=== PATIENT | female | born 1950 | race Caucasian/White ===

== ENCOUNTER 2018-02-11 15:13 | Emergency (ER) | payer MEDICARE, SELFPAY ==
[2018-02-11] VITALS (9 sets, daily range): BP systolic 113–170; BP diastolic 60–86; PULSE 75–98; RESP 10–21; TEMP 36.7; O2SAT 95–100; BMI 27.3
--- NOTE | 2018-02-11 15:26 | DI.RAD.S_ITS ---
PROCEDURE: XR CHEST 1V INDICATIONS: chest pain TECHNIQUE: One view of the chest was acquired. COMPARISON: None. FINDINGS: Surgical changes and devices: None. Lungs and pleura: No pleural effusions or pneumothorax. Lungs are clear. Mediastinum: Mediastinal contours appear normal. Heart size is normal. Bones and chest wall: No suspicious bony lesions. Overlying soft tissues appear unremarkable. IMPRESSION: No radiographic evidence of acute cardiopulmonary pathology. Dictated by: Edwin Leija M.D. on 02/11/2018 at 15:49 Approved by: Edwin Leija M.D. on 02/11/2018 at 15:50
[2018-02-11 15:55] LABS: Add Manual Diff / Slide Review NO; Basophils Percent Auto 0.7 % (0-2); Hematocrit 40.3 % (36-46); Hemoglobin 13.7 g/dL (12.0-16.0); Lymphocytes Percent Auto 17.2 % (25-40); Mean Corpuscular Hemoglobin 29.6 PG (26-34); Mean Corpuscular Volume 87.1 fL (80-100); Monocytes Percent Auto 8.2 % (3-14); Neutrophils Absolute Auto 6800 /uL (3000-5900); Neutrophils Percent Auto 71.9 % (50-75); Platelet Count 294 X10^3/uL (150-400); Red Blood Cell Count 4.62 X10^6/uL (4.0-5.2); Red Cell Distribution Width 13.5 % (11.6-14.8); White Blood Cell Count 9.5 X10^3/uL (4.5-11.0)
[2018-02-11 16:10] LABS: Alanine Aminotransferase 42 IU/L (9-52); Albumin 4.7 g/dL (3.5-5.0); Albumin Globulin Ratio 1.4 (1.0-2.8); Alkaline Phosphatase 88 U/L (38-126); Aspartate Aminotransferase 31 IU/L (14-36); Bilirubin Total 0.6 mg/dL (0.2-1.3); Calcium 9.5 mg/dL (8.4-10.2); Creatine Kinase 39 U/L (30-135); Estimated Glomerular Filt Rate > 60.0 mL/min (>60); Globulin 3.3 g/dL (1.7-4.1); Glucose 78 mg/dL (80-110); HEMOLYSIS 17 (0-50); Lipase 57 U/L (23-300); Potassium 3.9 mmol/L (3.4-5.1); Sodium 144 mmol/L (137-145)
[2018-02-11 16:22] LABS: Troponin I < 0.012 ng/mL (0.01-0.034)
[2018-02-11] MEDS: SODIUM CHLORIDE 0.9% 1,000 ML 150 ML IV (17:11)
[2018-02-11] MEDS: NITROGLYCERIN 0.4 MG SL TAB SL (17:11)
--- NOTE | 2018-02-11 17:39 | PC.NURSE ---
No change in pain after nitro administration. MD Ortiz aware. Vital Signs stable.
[2018-02-11 18:24] LABS: Troponin I < 0.012 ng/mL (0.01-0.034)
--- NOTE | 2018-02-11 18:39 | ED.CHESTPAIN ---
HPI - Chest Pain General Chief Complaint: Chest Pain Stated Complaint: Chest pain,jaw pain Time Seen by Provider: 02/11/18 15:52 History of Present Illness HPI narrative: Related Data Home Medications Medication Instructions Recorded Confirmed Fish Oil 1 cap PO QDAY 02/11/18 02/11/18 Vitamin D3 1 tab PO QDAY 02/11/18 02/11/18 dimethyl fumarate [Tecfidera] 240 mg PO BID 02/11/18 02/11/18 multivitamin 1 tab PO DAILY 02/11/18 02/11/18 venlafaxine 150 mg PO QDAY 02/11/18 02/11/18 Allergies Allergy/AdvReac Type Severity Reaction Status Date / Time codeine [CODEINE] AdvReac Mild ITCHING Verified 02/11/18 17:46 PFSH Surgical History History of carpal tunnel repair (02/07/09) Family History Father Heart disease Grandfather Alcoholism Grandmother Diabetes mellitus High cholesterol Social History Smoking Status: Never smoker MDM - Chest Pain Lab Data Result diagrams: 02/11/18 15:35 02/11/18 15:35 Lab Results 02/11/18 02/11/18 02/11/18 Range/Units 15:35 15:35 17:50 WBC 9.5 (4.5-11.0) X10^3/uL RBC 4.62 (4.0-5.2) X10^6/uL Hgb 13.7 (12.0-16.0) g/dL Hct 40.3 (36-46) % MCV 87.1 (80-100) fL MCH 29.6 (26-34) PG MCHC 34.0 (30-36) % RDW 13.5 (11.6-14.8) % Plt Count 294 (150-400) X10^3/uL Neut % (Auto) 71.9 (50-75) % Lymph % (Auto) 17.2 L (25-40) % Slope % (Auto) 8.2 (3-14) % Eos % (Auto) 2.0 (2-4) % Baso % (Auto) 0.7 (0-2) % Neut # (Auto) 6800 H (5256-6590) /uL Sodium 144 (137-145) mmol/L Potassium 3.9 (3.4-5.1) mmol/L Chloride 102.0 (98-107) mmol/L Carbon Dioxide 31.0 (22-32) mmol/L BUN 14.0 (7-17) mg/dL Creatinine 0.70 (0.52-1.04) mg/dL Estimated GFR > 60.0 (>60) mL/min BUN/Creatinine Ratio 20.0 (6-22) Glucose 78 L (80-110) mg/dL Calcium 9.5 (8.4-10.2) mg/dL Total Bilirubin 0.6 (0.2-1.3) mg/dL AST 31 (14-36) IU/L ALT 42 (9-52) IU/L Alkaline Phosphatase 88 (38-126) U/L Total Creatine Kinase 39 (30-135) U/L Troponin I < 0.012 < 0.012 (0.01-0.034) ng/mL Total Protein 8.0 (6.3-8.2) g/dL Albumin 4.7 (3.5-5.0) g/dL Globulin 3.3 (1.7-4.1) g/dL Albumin/Globulin Ratio 1.4 (1.0-2.8) Lipase 57 (23-300) U/L Discharge Plan Departure Prescriptions: No Action multivitamin Tablet 1 tab PO DAILY RF: 0 venlafaxine 150 mg capsule,extended release 24hr 150 mg PO QDAY RF: 0 dimethyl fumarate [Tecfidera] 240 mg Capsule,Delayed Release(Dr/Ec) 240 mg PO BID RF: 0 Fish Oil 1 cap PO QDAY RF: 0 Vitamin D3 1 tab PO QDAY RF: 0
[2018-02-11 20:47] LABS: Culture Indicated Urine Cult Not Indicated; Urine Comments Microscopic Normal
== END 2018-02-11 20:36 | disposition left against medical advice (07) ==
PROVIDERS: Emergency Provider Emergency Medicine; Family Provider Family Medicine; PCP Family Medicine
DX: R07.9 Chest pain, unspecified (principal)
CPT/HCPCS: 36415; 36591; 71045; 80053; 81003; 81015; 82550; 82553; 83690; 84484; 85025; 93005; 99283; 99285

== ENCOUNTER 2019-02-19 22:11 | Emergency (ER) | payer MEDICARE, SELFPAY ==
[2019-02-19 22:19] VITALS: BP 178/82; PULSE 84; RESP 15; TEMP 37.1; O2SAT 98; BMI 25.6
--- NOTE | 2019-02-19 22:58 | DI.RAD.S_ITS ---
PROCEDURE: XR SOFT TISSUE NECK INDICATIONS: sore throat TECHNIQUE: 2 views of the neck were acquired. COMPARISON: None. FINDINGS: Airway: The airway appears patent. Soft tissues: Prevertebral soft tissues are normal in thickness. The epiglottis and aryepiglottic folds appear normal. No soft tissue gas. Subtle calcifications within the soft tissues adjacent to the cervical spine on the frontal view and are felt to represent carotid artery atherosclerotic changes. No radiopaque foreign bodies are evident. Bones: No suspicious bony lesions. Visualized cervical spine is normally aligned. Mild to moderate degenerative changes of the cervical spine are evident. IMPRESSION: 1. The airway is patent. 2. Normal epiglottis. 3. Carotid artery atherosclerosis. 4. Mild to moderate degenerative changes of the cervical spine. Note: The preliminary [facility] report and the final report are concordant. Dictated by: Skyler Harvey M.D. on 02/20/2019 at 6:53 Approved by: Skyler Harvey M.D. on 02/20/2019 at 6:55
--- NOTE | 2019-02-19 22:59 | ED.URI ---
HPI - URI/Sore Throat General Chief Complaint: Upper Respiratory Symptoms Stated Complaint: SORE THROAT Time Seen by Provider: 02/19/19 22:54 Source: patient Mode of arrival: ambulatory Limitations: no limitations History of Present Illness HPI Narrative: Patient is a 69-year-old female here for evaluation of a sore throat. This been going on for the past day or so. She was seen at the clinic over on [facility] where she reported that she had a negative strep test however was given a prescription for penicillin. She was also given a prescription for Magic mouthwash for the sore throat. She came into the emergency department this evening for continued pain. Has had a runny nose recently. Has been coughing. No fevers. She states that she is able to swallow however it is just painful for her to swallow. Related Data Home Medications Medication Instructions Recorded Confirmed Fish Oil 1 cap PO QDAY 02/11/18 02/11/18 Vitamin D3 1 tab PO QDAY 02/11/18 02/11/18 dimethyl fumarate [Tecfidera] 240 mg PO BID 02/11/18 02/11/18 multivitamin 1 tab PO DAILY 02/11/18 02/11/18 venlafaxine 150 mg PO QDAY 02/11/18 02/11/18 Allergies Allergy/AdvReac Type Severity Reaction Status Date / Time codeine [CODEINE] AdvReac Mild ITCHING Verified 02/19/19 22:19 Review of Systems Constitutional Denies fever(s) and Denies headache(s) ENT Ears, Nose, Mouth, and Throat: Denies vertigo, Denies dry mouth, Denies facial pain, Denies headache(s), Reports nasal discharge, Denies neck mass, Reports neck pain, Denies disequilibrium, Reports sore throat, Denies throat swelling and Denies tongue swelling Cardiovascular Denies chest pain and Denies dyspnea Respiratory Reports cough and Denies dyspnea Musculoskeletal Reports neck pain Integumentary/Breasts Denies rash Neurologic Denies vertigo, Denies headache(s) and Denies disequilibrium Hematologic/Lymphatic Denies easy bleeding and Denies easy bruising Allergic/Immunologic Denies throat swelling and Denies tongue swelling [facility] Medical History Multiple sclerosis (Acute) Surgical History (Updated 02/03/18 @ 06:06 by Conversion Provider) History of carpal tunnel repair (02/07/09) Family History (Updated 05/02/15 @ 00:00 by Conversion Provider) Father Heart disease Grandfather Alcoholism Grandmother Diabetes mellitus High cholesterol Social History Smoking Status: Never smoker Family History (Updated 05/02/15 @ 00:00 by Conversion Provider) Father Heart disease Grandfather Alcoholism Grandmother Diabetes mellitus High cholesterol Social History Smoking Status: Never smoker Exam Initial Vital Signs Initial Vital Signs: Vital Signs Temperature 98.8 F 02/19/19 22:19 Pulse Rate 84 02/19/19 22:19 Respiratory Rate 15 02/19/19 22:19 Blood Pressure 178/82 H 02/19/19 22:19 Pulse Oximetry 98 02/19/19 22:19 Const General: cooperative, comfortable, well developed, well groomed and No acute distress Orientation: alert, awake and oriented x3 HENMT Head: normal to inspection and normocephalic Ears: TM's normal bilaterally Nose: external nose normal Face and sinus: normal facial exam Mouth: oral mucosae normal Teeth and gingiva: dentition normal Throat: posterior oropharynx normal Neck Lymphatic: lymphadenopathy Resp Effort & Inspection: normal respiratory effort Auscultation: clear to auscultation bilaterally Cardio Rate: regular rate Rhythm: regular rhythm Skin Lesions: no lesions Rashes: no rashes Neuro General: alert and awake Speech: abnormal speech (Muffled voice) Extrem General: normal to inspection and capillary refill normal Course Orders Ordered: ED Orders 02/19/19 22:58 XR soft tissue neck Stat Discontinued Medications Dexamethasone (Decadron) 10 mg PO NOW ONE Stop: 02/20/19 00:03 Last Admin: 02/20/19 00:10 Dose: 10 mg Vital Signs - 8 hr 02/19/19 22:19 02/19/19 23:35 02/20/19 00:16 Temperature 98.8 F Pulse Rate 84 79 89 Respiratory Rate 15 16 Blood Pressure 178/82 H 152/91 H Blood Pressure [Left Arm] 149/65 H Pulse Oximetry 98 99 99 MDM - URI/Sore Throat Lab Data Attestation: I reviewed the patient's lab results. Point of Care Testing Rapid Strep A Negative Imaging Data Soft tissue neck x-ray: Radiologist's impression: No significant abnormalities MDM Narrative Medical decision making narrative: Patient is not in any respiratory distress. She is able to swallow it is just it is tender for her to swallow. Low suspicion for obstruction or muscular issues related to her MS. She does have left-sided submandibular lymphadenopathy. She also has another upper respiratory infection like symptoms. She is currently on antibiotics prescribed by another provider from her visit earlier today. We did discuss the use of decongestants. She was given a dose of Decadron here in the ER to try to help with her symptoms. She was given return precautions and follow-up instructions. She expressed understanding and agreement with plan. Discharge Plan Departure Patient Disposition: Home Clinical Impression: Pharyngitis Qualifiers: Pharyngitis/tonsillitis etiology: unspecified etiology Qualified Code(s): J02.9 - Acute pharyngitis, unspecified Discharge Date/Time: 02/20/19 00:16 Interventions: ED Discharge Assessment Last Done: 02/20/19 00:16 Activity Restrictions/Additional Instructions: I recommend that you continue with the antibiotics that were given to you at your prior visit. The liquid medication that you were given you can take as needed. I recommend you start taking a decongestant such as Claritin/loratadine. Return to the emergency department for any new symptoms to include the inability to swallow or problems breathing. Contact your primary doctor for follow-up. Prescriptions: No Action multivitamin Tablet 1 tab PO DAILY RF: 0 venlafaxine 150 mg capsule,extended release 24hr 150 mg PO QDAY RF: 0 dimethyl fumarate [Tecfidera] 240 mg Capsule,Delayed Release(Dr/Ec) 240 mg PO BID RF: 0 Fish Oil 1 cap PO QDAY RF: 0 Vitamin D3 1 tab PO QDAY RF: 0 Referrals: Dari Caldera MD [Primary Care Provider] -
[2019-02-19 23:35] VITALS: BP 149/65; PULSE 79; RESP 16; O2SAT 99
[2019-02-20] MEDS: DEXAMETHASONE 10 MG/ML VIAL PO (00:10)
[2019-02-20 00:16] VITALS: BP 152/91; PULSE 89; O2SAT 99
== END 2019-02-20 00:16 | disposition home or self-care (01) ==
PROVIDERS: Emergency Provider Emergency Medicine; PCP Family Medicine
DX: J02.9 Acute pharyngitis, unspecified (principal)
CPT/HCPCS: 70360; 87880; 99282; 99283; J1100

== ENCOUNTER 2020-11-24 17:32 | Observation (INO) | payer MEDICARE, SELFPAY ==
[2020-11-24 17:43] VITALS: BP 227/135; PULSE 73; RESP 14; TEMP 37; O2SAT 99; BMI 29.2
--- NOTE | 2020-11-24 17:50 | DI.CT.S_ITS ---
PROCEDURE: CT STROKE INDICATIONS: slurred speech,last known normal 0000 TECHNIQUE: Noncontrast 4.5 mm thick angled axial sections acquired from the foramen magnum to the vertex, with coronal reformats. For radiation dose reduction, the following was used: automated exposure control, adjustment of mA and/or kV according to patient size. COMPARISON: None. FINDINGS: Image quality: Excellent. CSF spaces: Basal cisterns are patent. No extra-axial fluid collections. The ventricles are symmetric in size and shape. Brain: No intracranial bleeds or masses. There is cerebral volume loss for age, with resultant ventricular and sulcal prominence. There are periventricular and deep white matter chronic small vessel ischemic changes. There is intracranial internal carotid artery atherosclerosis. Skull and face: Calvarium and visualized facial bones appear intact, without suspicious lesions. Sinuses: Visualized sinuses and mastoids are clear. IMPRESSION: No acute intracranial disease process. Findings telephoned to Dr. Restrepo on November 24, 2020 at 6:01 p.m.. This study fulfills neurological imaging criteria for inclusion or exclusion of acute stroke therapies based on available published neurological guidelines. Dictated by: Carisa Jj MD, PhD on 11/24/2020 at 18:10 Approved by: Carisa Jj MD, PhD on 11/24/2020 at 18:12
[2020-11-24 18:23] LABS: Add Manual Diff / Slide Review NO; Basophils Absolute Auto 100 /uL (0-100); Basophils Percent Auto 0.9 % (0-2); Eosinophils Absolute Auto 200 /uL (0-450); Eosinophils Percent Auto 2.8 % (2-4); Hematocrit 41.2 % (36-46); Hemoglobin 13.7 g/dL (12.0-16.0); Lymphocytes Absolute Auto 1800 /uL (1100-4500); Lymphocytes Percent Auto 22.7 % (25-40); Mean Corpuscular HGB Conc 33.3 % (30-36); Mean Corpuscular Hemoglobin 29.2 PG (26-34); Mean Corpuscular Volume 87.6 fL (80-100); Monocytes Absolute Auto 800 /uL (0-900); Monocytes Percent Auto 9.7 % (3-14); Neutrophils Absolute Auto 5200 /uL (1500-7000); Neutrophils Percent Auto 63.9 % (50-75); Platelet Count 298 X10^3/uL (150-400); Red Cell Distribution Width 13.1 % (11.6-14.8); White Blood Cell Count 8.1 X10^3/uL (4.5-11.0)
[2020-11-24 18:29] LABS: Prothrombin Time 11.9 SECONDS (10.1-12.7)
[2020-11-24 18:31] LABS: PTT Partial Thromboplastin Tim 31 SECONDS (26.4-36.2)
[2020-11-24 18:34] LABS: Alanine Aminotransferase 26 IU/L (<35); Albumin 4.3 g/dL (3.5-5.0); Albumin Globulin Ratio 1.4 (1.0-2.8); Alkaline Phosphatase 114 U/L (38-126); Aspartate Aminotransferase 28 IU/L (14-36); BUN Creatinine Ratio 15.2 (6-22); Bilirubin Total 0.1 mg/dL (0.2-1.3); Blood Urea Nitrogen 12 mg/dL (7-17); Calcium 9.8 mg/dL (8.4-10.2); Carbon Dioxide 32 mmol/L (22-32); Chloride 101 mmol/L (98-107); Estimated Glomerular Filt Rate > 60.0 mL/min (>60); Globulin 3.1 g/dL (1.7-4.1); Glucose 97 mg/dL (80-110); HEMOLYSIS < 15 (0-50); Potassium 3.9 mmol/L (3.4-5.1); Sodium 139 mmol/L (137-145); Total Protein 7.4 g/dL (6.3-8.2)
[2020-11-24 18:39] VITALS: PULSE 82; RESP 20
[2020-11-24 18:40] VITALS: BP 160/85; PULSE 80; RESP 19; O2SAT 98
--- NOTE | 2020-11-24 19:09 | ED.NEUROSD ---
HPI - Neuro Symptoms/Deficit General Chief Complaint: Neuro Symptoms/Deficit Stated Complaint: Slurred speech, thinks TIA Time Seen by Provider: 11/24/20 18:47 Source: patient Mode of arrival: Ambulatory Limitations: no limitations History of Present Illness HPI Narrative: Patient is a 70-year-old female. Relatively healthy except for prior diagnosis of multiple sclerosis. She has seen a neurologist in the past and had been on medication in the past but nothing in the past year to include neither neurology visits nor medications. She states that yesterday she generally did not feel very well although there was no specific symptoms. She states she woke up this morning feeling okay and around 1000 hours this morning she noticed that she was slurring her words she was trying to talk to someone on the phone. She states she had woken up several hours before that but since her was at work she did not have any reason to talk with anyone so she did not notice the symptoms until 10. Since that time she thought that the symptoms have continued although potentially improved somewhat. She denies any other associated symptoms. Has never had anything like this in the past. She states that in the past her MS flares have presented with visual complaints. On Anticoagulants: No Related Data Home Medications Medication Instructions Recorded Confirmed Fish Oil 1 cap PO QDAY 02/11/18 11/24/20 Vitamin D3 1 tab PO QDAY 02/11/18 11/24/20 multivitamin 1 tab PO DAILY 02/11/18 11/24/20 venlafaxine 225 mg PO QDAY 02/11/18 11/24/20 Allergies Allergy/AdvReac Type Severity Reaction Status Date / Time codeine [CODEINE] AdvReac Mild ITCHING Verified 11/24/20 17:43 Review of Systems Constitutional Constitutional: Denies chills, Reports fatigue, Denies fever(s), Denies headache(s) and Reports malaise Eyes Eyes: Denies change in vision ENT Ears, Nose, Mouth, and Throat: Denies headache(s) and Denies sore throat Cardiovascular Cardiovascular: Denies chest pain, Denies syncope, Denies rapid heart rate, Denies irregular heart rhythm and Denies dyspnea Respiratory Respiratory: Denies dyspnea Gastrointestinal Gastrointestinal: Denies abdominal pain, Denies nausea and Denies vomiting Genitourinary Genitourinary: Denies dysuria Genitourinary: Denies dysuria Musculoskeletal Musculoskeletal: Denies arthralgias and Denies myalgias Integumentary/Breasts Skin/Breast: Denies lesions and Denies rash Neurologic Neurologic: Denies behavioral changes, Denies syncope and Denies headache(s) Psychiatric Psychiatric: Denies anxiety and Denies behavioral changes Endocrine Endocrine: Reports fatigue Hematologic/Lymphatic On Anticoagulants: No Allergic/Immunologic Allergic/Immunologic: Denies urticaria Patient History Medical History Multiple sclerosis Surgical History History of carpal tunnel repair (02/07/09) Hx of cholecystectomy Family History Father Heart disease CVA (cerebral vascular accident) Grandfather Alcoholism Grandmother Diabetes mellitus High cholesterol Mother Uterine cancer Social History household members: spouse Smoking Status: Never smoker alcohol intake: never Smoking Status: Never smoker alcohol intake frequency: other Substance Use Type: does not use Exam Initial Vital Signs Initial Vital Signs: Vital Signs Temperature 98.6 F 11/24/20 17:43 Pulse Rate 73 11/24/20 17:43 Respiratory Rate 14 11/24/20 17:43 Blood Pressure 227/135 H 11/24/20 17:43 Pulse Oximetry 99 11/24/20 17:43 Const General: cooperative, healthy appearing, comfortable and well developed Limitations: mental status not altered HENMT Head: normal to inspection and normocephalic Nose: external nose normal Face and sinus: normal facial exam Eyes Pupils: PERRL EOM: EOM intact bilaterally Resp Effort & Inspection: normal respiratory effort Auscultation: clear to auscultation bilaterally Cardio Rate: regular rate Rhythm: regular rhythm GI Inspection: non-distended Palpation: soft Skin Lesions: no lesions Rashes: no rashes Neuro General: patient alert, patient awake and patient oriented x3 Cognition: normal cognition Gait: normal gait Motor: muscle tone normal throughout Sensory Exam: no sensory deficits noted Coordination: [id number] test normal Extrem General: normal to inspection and capillary refill normal Psych Appearance: grossly normal and well kempt Scores ABCD2 Age >= 60 years: yes Initial BP. Either SBP >= 140 or DBP >= 90.: yes Clinical features of the TIA: speech disturbance without weakness Duration of symptoms: >= 60 minutes History of diabetes: no ABCD2 Score: 5 GCS [place] coma scale eye opening: Spontaneous [place] coma scale verbal response: Orientated [place] coma scale motor response: Obey commands [place] coma scale total score: 15 NIH Stroke Scale Level of Conciousness: Alert, keenly responsive Ask month/age: Answers both questions correctly. Open/close eyes, close hand: Performs both tasks correctly Best gaze horizontal: Normal Visual jones: No visual loss Facial palsy: Normal symetrical movement Left arm drift: No drift for full 10 sec Right arm drift: No drift for full 10 sec Left leg drift: No drift for full 5 sec Right leg drift: No drift for full 5 sec Limb ataxia: Absent Sensory on face/arms/legs: Normal, no sensory loss Best language: Mild to moderate, slurs some words Dysarthria: Mild to mod,some slurring Extinction or inattention: No abnormality Total NIH Stroke scale score: 2 Course Orders Ordered: ED Orders 11/24/20 18:15 Complete Blood Count AUTO DIFF Stat Comprehensive Metabolic Panel Stat Partial Thromboplastin Time Stat Prothrombin Time INR Stat 11/24/20 19:24 COVID19 Stat Aspirin (Aspirin Ec 81 Mg Tablet) 81 mg PO DAILY [facility] Atorvastatin Calcium (Atorvastatin 20 Mg Tablet) 80 mg PO BEDTIME [facility] Last Admin: 11/24/20 22:15 Dose: 80 mg Documented by: LAURA Clopidogrel Bisulfate (Clopidogrel 75 Mg Tablet) 75 mg PO DAILY [facility] Enoxaparin Sodium (Enoxaparin 40 Mg/0.4 Ml Syringe) 40 mg SUBCUT DAILY [facility] Influenza Virus Vaccine (Influenza Hd Vaccine 0.7 Ml Syringe) 0.7 ml IM .ONCE ONE Stop: 11/25/20 09:01 Naloxone HCl (Naloxone 0.4 Mg/Ml Vial) 0.2 mg IV Q2MIN PRN PRN Reason: Opiate Reversal Ondansetron HCl (Ondansetron 4 Mg/2 Ml Inj) 4 mg IV Q8HR PRN PRN Reason: Nausea And Vomiting Sodium Chloride (Sodium Chloride 0.9% Flush) 10 ml IV PRN PRN PRN Reason: Flush Sodium Chloride (Sodium Chloride 0.9% Flush) 10 ml IV BID [facility] Venlafaxine HCl (Venlafaxine Er 75 Mg Cap) 150 mg PO DAILY [facility] Venlafaxine HCl (Venlafaxine Er 75 Mg Cap) 75 mg PO DAILY [facility] Discontinued Medications Aspirin (Aspirin 81 Mg Chew Tab) 324 mg PO NOW ONE Stop: 11/24/20 19:11 Last Admin: 11/24/20 19:25 Dose: 324 mg Documented by: PHAN Influenza Virus Vaccine (Influenza Hd Vaccine 0.7 Ml Syringe) 0.7 ml IM .ONCE ONE Stop: 11/24/20 22:37 Last Admin: 11/25/20 01:14 Dose: Not Given Documented by: MARY Vital Signs Vital signs: Vital Signs - 8 hr 11/24/20 17:43 Temperature 98.6 F Pulse Rate 73 Respiratory Rate 14 Blood Pressure 227/135 H Pulse Oximetry 99 MDM - Neuro Symptoms/Deficit Medical Records Attestation: I reviewed the patient's medical records. Lab Data Attestation: I reviewed the patient's lab results. Result diagrams: 11/24/20 18:15 11/24/20 18:15 Labs: Lab Results 11/24/20 11/24/20 11/24/20 Range/Units 18:15 18:15 18:15 WBC 8.1 (4.5-11.0) X10^3/uL RBC 4.70 (4.0-5.2) X10^6/uL Hgb 13.7 (12.0-16.0) g/dL Hct 41.2 (36-46) % MCV 87.6 (80-100) fL MCH 29.2 (26-34) PG MCHC 33.3 (30-36) % RDW 13.1 (11.6-14.8) % Plt Count 298 (150-400) X10^3/uL Neut % (Auto) 63.9 (50-75) % Lymph % (Auto) 22.7 L (25-40) % Delta % (Auto) 9.7 (3-14) % Eos % (Auto) 2.8 (2-4) % Baso % (Auto) 0.9 (0-2) % Neut # (Auto) 5200 (6908-0096) /uL Lymph # (Auto) 1800 (9902-0718) /uL Delta # (Auto) 800 (0-900) /uL Eos # (Auto) 200 (0-450) /uL Baso # (Auto) 100 (0-100) /uL PT 11.9 (10.1-12.7) SECONDS INR 1.0 (0.9-1.3) APTT 31 (26.4-36.2) SECONDS Sodium 139 (137-145) mmol/L Potassium 3.9 (3.4-5.1) mmol/L Chloride 101 (98-107) mmol/L Carbon Dioxide 32 (22-32) mmol/L BUN 12 (7-17) mg/dL Creatinine 0.79 (0.52-1.04) mg/dL Estimated GFR > 60.0 (>60) mL/min BUN/Creatinine Ratio 15.2 (6-22) Glucose 97 (80-110) mg/dL Hemoglobin A1c (4.0-6.0) % Calcium 9.8 (8.4-10.2) mg/dL Total Bilirubin 0.1 L (0.2-1.3) mg/dL AST 28 (14-36) IU/L ALT 26 (<35) IU/L Alkaline Phosphatase 114 (38-126) U/L Total Protein 7.4 (6.3-8.2) g/dL Albumin 4.3 (3.5-5.0) g/dL Globulin 3.1 (1.7-4.1) g/dL Albumin/Globulin Ratio 1.4 (1.0-2.8) SARS-CoV-2 (PCR) (Negative) 11/24/20 11/24/20 Range/Units 18:15 19:24 WBC (4.5-11.0) X10^3/uL RBC (4.0-5.2) X10^6/uL Hgb (12.0-16.0) g/dL Hct (36-46) % MCV (80-100) fL MCH (26-34) PG MCHC (30-36) % RDW (11.6-14.8) % Plt Count (150-400) X10^3/uL Neut % (Auto) (50-75) % Lymph % (Auto) (25-40) % Delta % (Auto) (3-14) % Eos % (Auto) (2-4) % Baso % (Auto) (0-2) % Neut # (Auto) (0409-5580) /uL Lymph # (Auto) (7257-4531) /uL Delta # (Auto) (0-900) /uL Eos # (Auto) (0-450) /uL Baso # (Auto) (0-100) /uL PT (10.1-12.7) SECONDS INR (0.9-1.3) APTT (26.4-36.2) SECONDS Sodium (137-145) mmol/L Potassium (3.4-5.1) mmol/L Chloride (98-107) mmol/L Carbon Dioxide (22-32) mmol/L BUN (7-17) mg/dL Creatinine (0.52-1.04) mg/dL Estimated GFR (>60) mL/min BUN/Creatinine Ratio (6-22) Glucose (80-110) mg/dL Hemoglobin A1c 5.6 (4.0-6.0) % Calcium (8.4-10.2) mg/dL Total Bilirubin (0.2-1.3) mg/dL AST (14-36) IU/L ALT (<35) IU/L Alkaline Phosphatase (38-126) U/L Total Protein (6.3-8.2) g/dL Albumin (3.5-5.0) g/dL Globulin (1.7-4.1) g/dL Albumin/Globulin Ratio (1.0-2.8) SARS-CoV-2 (PCR) Negative (Negative) Urine Dip Bedside Urine Glucose Negative Bedside Urine Bilirubin - Negative Bedside Urine Ketone - Negative Urine Specific [place] 1.015 Bedside Urine Occult Blood - Negative Bedside Urine pH 7.5 Bedside Urine Protein - Negative Bedside Urine Urobilinogen - Negative Bedside Urine Nitrite - Negative Bedside Urine Leukocytes - Negative Esterase Imaging Data CT scan - head: Radiologist's Impression: [address] [id number] Scan ReportSigned Patient: Kelly Kam IMR#: [id number]: 8Acct:[id number]/Sex: 70 / FDate of Service: 11/24/20Loc: EDAccession Number: [id number] Procedure: CT Stroke Ordering Provider: Nanette Restrepo D.O. PROCEDURE: CT STROKE INDICATIONS: slurred speech,last known normal 0000 TECHNIQUE: Noncontrast 4.5 mm thick angled axial sections acquired from the foramen magnum to the vertex, with coronal reformats. For radiation dose reduction, the following was used: automated exposure control, adjustment of mA and/or kV according to patient size. COMPARISON: None. FINDINGS: Image quality: Excellent. CSF spaces: Basal cisterns are patent. No extra-axial fluid collections. The ventricles are symmetric in size and shape. Brain: No intracranial bleeds or masses. There is cerebral volume loss for age, with resultant ventricular and sulcal prominence. There are periventricular and deep white matter chronic small vessel ischemic changes. There is intracranial internal carotid artery atherosclerosis. Skull and face: Calvarium and visualized facial bones appear intact, without suspicious lesions. Sinuses: Visualized sinuses and mastoids are clear. IMPRESSION: No acute intracranial disease process. Findings telephoned to Dr. Restrepo on November 24, 2020 at 6:01 p.m.. This study fulfills neurological imaging criteria for inclusion or exclusion of acute stroke therapies based on available published neurological guidelines. Dictated by: Carisa Jj MD, PhD on 11/24/2020 at 18:10 Approved by: Carisa Jj MD, PhD on 11/24/2020 at 18:12 ECG Data Attestation: I personally reviewed and interpreted this ECG as follows: Prior ECG tracings: not available for review Interpretation: Sinus rhythm Ventricular rate is 76 Normal axis Normal QRS Normal QTC No ST T wave changes MDM Narrative Medical decision making narrative: Her head CT is unremarkable. She is outside the window for tPA given the fact that she presented to the emergency department greater than 4.5 hours after the onset of her symptoms. She reports that she thinks that her symptoms are improving. She did have an NIH of 2 and that was because she did slower some of her words however was able to understand everything that she was saying and if she had not specifically stated that she was having problems lying reports I do not know if I would have even noticed the deficits. She has no other focal neurologic deficits. I have low suspicion for large vessel occlusion given her presentation. She does have a history of MS and we did discuss potentially this being related to that. We also discussed TIAs. She has a ABCD2 score of 5. I do feel that admission to the hospital for further evaluation and MRI is warranted. Discussed the case with NPO along the night Hospital provider who will admit for further evaluation and treatment. I did discuss this with the patient as well. She expressed understanding and agreement. Discharge Plan Departure Patient Disposition: Admitted as Observation Clinical Impression: Transient cerebral ischemia, Multiple sclerosis Admit Date/Time: 11/24/20 20:12 Admit Provider: Cate Ramirez
[2020-11-24] MEDS: ASPIRIN 81 MG CHEW TAB 324 MG PO (19:25)
[2020-11-24 19:48] LABS: COVID19 -Nasal RAPID Negative (Negative)
--- NOTE | 2020-11-24 20:21 | DI.ECHO.S_ITS ---
[place] +---------+ [facility] +---------+ : : [address] : : : : [id number] : : : : Phone: [phone]+ Echocardiogram Report + + :Name: BLAINE SAINZ I Study Date: 11/25/2020 Height: 61 in : :[facility] ReadingLocation: Weight: 155 lb : : Gender: Female BSA: 1.7 m2 : :: 1950 Age: 70 yrs BP: 148/82 mmHg: :Reason For Study: SLURRED SPEECH, BUBBLE STUDY : :Ordering Physician: BERNADETTE SANDERS : :[employer] Performed By: Magali Arevalo : :Referring: BERNADETTE SANDERS : + + Interpretation Summary 1) Normal left ventricular thickness, size, and systolic function (EF 60-65%). 2) Normal right ventricular size and function. 3) No significant valvular abnormalities. 4) Injection of contrast documented no interatrial shunt. 5) There is mild luminal irregularity and echogenicity in the abdominal aorta, suggestive of aortic atherosclerotic disease. 6) No prior Echo available for comparison. Procedure: A two-dimensional transthoracic echocardiogram with color flow and Doppler was performed. The study quality was technically adequate. There is no prior echocardiogram noted for this patient. The patient had frequent PVCs during the exam. The patient was in sinus rhythm with heart rates between 72-84 bpm during the exam. Left Ventricle: There is normal left ventricular wall thickness. The left ventricle is normal in size. The ejection fraction is estimated to be 60-65%. Septal motion is consistent with conduction abnormality. There are no focal wall motion abnormalities. Diastolic parameters suggest a relaxation abnormality of the left ventricle, consistent with probable normal filling pressures. Right Ventricle: The right ventricle is normal in size and function. Atria: Both atria are normal in size. Injection of contrast documented no interatrial shunt. Mitral Valve: The mitral valve is normal in structure and function. There is no mitral regurgitation noted. Aortic Valve: The aortic valve is slightly calcified. The aortic valve opens well. There is no aortic valve stenosis. No aortic regurgitation is present. Tricuspid Valve: The tricuspid valve is normal in structure and function. Comparison with the previous study is not possible because this was unable to be assessed on the previous study. There is trace tricuspid regurgitation. Pulmonic Valve: The pulmonic valve leaflets are thin and pliable; valve motion is normal. There is no pulmonic valvular regurgitation. Great Vessels: The aortic root is normal size. The ascending aorta could not be visualized. There is mild luminal irregularity and echogenicity in the abdominal aorta, suggestive of aortic atherosclerotic disease. The IVC is of normal diameter and collapses greater than 50% with a sniff. This suggests a low right atrial pressure of 3 mm Hg. Pericardium/ Pleura There is no pericardial effusion. There is no pleural effusion. MMode/2D Measurements & Calculations LVIDd: 3.5 cm LVOT diam: 2.0 cm LVIDs: 2.2 cm Ao root diam: 3.0 cm FS: 36.8 % Ao Arch Diam (Prox Trans): 2.6 cm EPSS: 0.92 cm IVSd: 1.2 cm LVPWd: 0.91 cm LV boyle. diameter/BSA (cm/m^2): 2.1 LV sys. diameter/BSA (cm/m^2): 1.3 LA A2 area: 14.7 cm2 RA long axis: 3.9 cm LA A4 area: 14.4 cm2 RA area: 11.1 cm2 LA length (vol): 4.6 cm RA vol: 27.0 ml LA vol: 39.5 ml RA : 15.9 ml/m2 LA vol index: 23.3 ml/m2 IVC diam: 0.50 cm RVD1 (basal): 1.4 cm TAPSE: 1.7 cm Doppler Measurements & Calculations Ao V2 max: 114.7 cm/sec LVOT Max Alec: 73.0 cm/sec Ao V2 mean: 82.3 cm/sec LV V1 max P.1 mmHg Ao max P.3 mmHg LV V1 VTI: 14.9 cm Ao mean P.9 mmHg WALT(I,D): 2.1 cm2 Ao V2 VTI: 21.4 cm WALT(V,D): 1.9 cm2 sev ratio: 0.70 WALT indexed to BSA (cm^2/m^2): 1.2 MV E max alec: 74.5 cm/sec PA V2 max: 69.2 cm/sec MV A max alec: 85.9 cm/sec PA V2 mean: 42.1 cm/sec MV E/A: 0.87 PA mean P.85 mmHg Med Peak E' Alec: 7.6 cm/sec PA pr(Accel): 7.1 mmHg E/E' med: 9.9 Lat Peak E' Alec: 4.2 cm/sec E/E' lat: 17.8 E/e' average: 13.8 MV dec time: 0.23 sec SV(OT): 44.8 ml Reading Physician:11:44 AM
[2020-11-24 20:36] LABS: Hemoglobin A1C% w Est Avg Glu 5.6 % (4.0-6.0)
[2020-11-24 21:45] VITALS: BP 130/91; PULSE 78; RESP 17; TEMP 36.6; O2SAT 100
--- NOTE | 2020-11-24 21:59 | PM.HP.1 ---
History of Present Illness History of Present Illness Date Patient Seen: 11/24/20 Time Patient Seen: 21:45 Chief complaint: Slurred speech, thinks TIA Narrative: Kelly Kam is a pleasant 70 y.o. female with multiple sclerosis who presented to the ED due to sudden onset difficulty with her speech. Stated she was on the phone with her friend prior to her returning home for lunch and felt that she was having difficulty speaking and some word finding difficulties. When her came home he observed her slurring. She stated she was having difficulty with pronouncing S and still feel she lisps. She denies visual changes, headache, difficulty swallowing, chest pain or palpitations, dyspnea, nausea or vomiting, dysurea, diarrhea or constipation, or any numbing or tingling. 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 She differentiates what happened today from her usual MS exacerbations which generally present with vision issues where she has double vision of her left eye. She sees a neurologist at [facility], had been taking medications for her MS, but is not currently doing so due to finances. She lives on [facility]. In the ED, her presenting blood pressure was 227/135. She is afebrile, currently her blood pressure is 130/91, heart rate 70, respiratory rate 17, oxygen saturation of 100% on room air she weighs 70.3 kg with a BMI of 29. Her labs essentially were all within normal limits, and she is COVID PCR negative. CT of the brain was negative. She was administered full strength in the ED. Patient History Medical History Multiple sclerosis Surgical History History of carpal tunnel repair (02/07/09) Hx of cholecystectomy Family & Social History Family History Father Heart disease CVA (cerebral vascular accident) Grandfather Alcoholism Grandmother Diabetes mellitus High cholesterol Mother Uterine cancer Safety & Behavioral: Feels Safe in Current Yes Environment Been Physically Hurt or No Threatened By a Person Tobacco & Substance use: Smoking Status Never smoker alcohol intake frequency other Substance Use Type does not use Meds Home Medications and Allergies Home Medications Medication Instructions Recorded Confirmed Type Fish Oil 1 cap PO QDAY 02/11/18 11/24/20 History Vitamin D3 1 tab PO QDAY 02/11/18 11/24/20 History multivitamin 1 tab PO DAILY 02/11/18 11/24/20 History venlafaxine 225 mg PO QDAY 02/11/18 11/24/20 History Allergies Allergy/AdvReac Type Severity Reaction Status Date / Time codeine [CODEINE] AdvReac Mild ITCHING Verified 11/24/20 17:43 Review of Systems Review of Systems ROS: Yes All systems reviewed with the patient and are negative except as otherwise documented Exam Vital Signs (past 8 hours): - 11/24/20 17:43 11/24/20 18:39 11/24/20 18:40 Temperature 98.6 F Pulse Rate 73 82 80 Respiratory Rate 14 20 19 Blood Pressure 227/135 H 160/85 H Pulse Oximetry 99 98 Oxygen Delivery Method Room Air Narrative Exam Narrative: Gen: Alert, oriented, well-developed 70 y.o. female, non-toxic appearing HEENT: normocephalic, atraumatic, conjunctiva clear, sclera non-icteric, oral mucosa pink and moist Neck: supple, full ROM, no JVD, trachea is midline Resp: Lungs CTA, non-labored breathing CV: RRR, no murmur or rubs Abd: soft, non-tender, normoactive BTs Skin: no lesions or rashes, dry and intact Neuro: Mild lisp and subtle right sided asymmetry of the mouth. Alert and oriented X 4 w/no focal deficits. Speech clear and coherent. Extremities: Hebrinon nodes on both hands, moves all 4 extremities, is ambulatory, negative Moody?s sign Psyche: normal mood and affect. Objective Labs Result Diagrams: 11/24/20 18:15 11/24/20 18:15 Labs: Laboratory Results - last 24 hr 11/24/20 11/24/20 11/24/20 18:15 18:15 18:15 WBC 8.1 RBC 4.70 Hgb 13.7 Hct 41.2 MCV 87.6 MCH 29.2 MCHC 33.3 RDW 13.1 Plt Count 298 Neut % (Auto) 63.9 Lymph % (Auto) 22.7 L [place] % (Auto) 9.7 Eos % (Auto) 2.8 Baso % (Auto) 0.9 Neut # (Auto) 5200 Lymph # (Auto) 1800 [place] # (Auto) 800 Eos # (Auto) 200 Baso # (Auto) 100 PT 11.9 INR 1.0 APTT 31 Sodium 139 Potassium 3.9 Chloride 101 Carbon Dioxide 32 BUN 12 Creatinine 0.79 Estimated GFR > 60.0 BUN/Creatinine Ratio 15.2 Glucose 97 Hemoglobin A1c Calcium 9.8 Total Bilirubin 0.1 L AST 28 ALT 26 Alkaline Phosphatase 114 Total Protein 7.4 Albumin 4.3 Globulin 3.1 Albumin/Globulin Ratio 1.4 SARS-CoV-2 (PCR) 11/24/20 11/24/20 18:15 19:24 WBC RBC Hgb Hct MCV MCH MCHC RDW Plt Count Neut % (Auto) Lymph % (Auto) [place] % (Auto) Eos % (Auto) Baso % (Auto) Neut # (Auto) Lymph # (Auto) [place] # (Auto) Eos # (Auto) Baso # (Auto) PT INR APTT Sodium Potassium Chloride Carbon Dioxide BUN Creatinine Estimated GFR BUN/Creatinine Ratio Glucose Hemoglobin A1c 5.6 Calcium Total Bilirubin AST ALT Alkaline Phosphatase Total Protein Albumin Globulin Albumin/Globulin Ratio SARS-CoV-2 (PCR) Negative Assessment & Plan Assessment & Plan narrative: Kelly Kam will be observed overnight and undergo additional testing for a TIA vs CVA on 11/25. Suspected TIA versus stroke, acute, present on admission -Cardiac telemetry -NIH score greater than 5 no -NIH scoring and neuro checks q 4 hours -Dual antiplatelet therapy: Yes initiate clopidogrel 75 mg p.o. daily and aspirin 81 mg p.o. daily -MR stroke scheduled for 11/25 -Complete Echo with bubble study for 11/25 -ST evaluation Hypertension, acute with an admission bp of 227/135, present on admission -Allow for permissive hypertension of 220/110 HR 60 to allow for brain perfusion HLD -Lipid panel, pending -Atorvastatin 80 mg po at bedtime Risk stratification -Fasting lipid panel -A1c 5.6 VTE prophylaxis: Wells risk score: 0 Enoxaparin 40 mg subQ daily Consults: none Patient is observation status as her stay is not likely to exceed 2 midnights. FEN: saline lock, heart healthy diet w/no added salt, BMP and magnesium in the am. Dispo: Probable discharge to home w/followup with her neurologist. Code Status: Full Code per patient. COVID-19 COVID-19 status: Negative Result date/Date tested (Pos, Neg/Pending): 11/24/20 Quality VTE Deep Vein Thrombosis/Pulmonary Embolism Present on Admission: No
[2020-11-24 22:04] VITALS: BMI 29.2
[2020-11-24] MEDS: ATORVASTATIN 20 MG TABLET 80 MG PO (22:15)
--- NOTE | 2020-11-25 | DI.MRI.S_ITS ---
PROCEDURE: MR STROKE Pre- and post-contrast brain MRI, non-contrast brain MR angiogram, pre- and postcontrast neck MR angiogram INDICATIONS: slurred speech concerning for TIA vs CVA TECHNIQUE: Brain: Noncontrast axial T1 spin echo, axial T2 fast spin echo, sagittal and axial FLAIR, coronal T2 fast spin echo, axial gradient echo, axial diffusion and ADC through the brain. After the administration of contrast, axial 3D VIBE of the cranial vasculature and brain. Brain MRA: Non-contrast 3-D time of flight MR angiogram, with multiple onjzksl-obyrcszez-knfhzotjwy (MIP) reformats performed. Neck MRA: Axial and sagittal TruFISP through the neck. Coronal dynamic MR angiogram during administration of contrast in the arterial and venous phases, with 3-dimenstional nbdjcne-rmkpmwxvw-dsavixbash (MIP) reformats constructed from subtraction images. COMPARISON: [facility] , MR, ANGIO HEAD W/O CONTRAST, 01/31/2010, 14:19. [facility] , MR, MS BRAIN W & W/O CONT, 01/31/2010, 14:19. [facility], CT, CT STROKE, 11/24/2020, 17:54. (Additional prior studies are not available for review from the archive at the time of this dictation.) FINDINGS: Image quality: Excellent. BRAIN: CSF spaces: Ventricles are normal in size and shape. Basal cisterns are patent. No extra-axial fluid collections. Brain: Within the deep white matter of the right frontal lobe, there is a diffusion-weighted abnormality seen, as on series 26 images 68 through 70. Associated dark signal can be seen on the ADC maps. Elsewhere within the deep white matter on both sides, there are areas of mildly increased diffusion-weighted signal. However, these correspond to bright areas on the ADC map and are attributed to artifact T2 shine through. Numerous T2 hyperintense white matter lesions are seen, including involving the corpus callosum. A few of the periventricular lesions demonstrate a perpendicular orientation to the lateral ventricles. Several juxtacortical lesions can also be seen. Several of the larger lesions demonstrate low signal on T1 weighted imaging. The burden of white matter lesions has progressed over time. No intracranial bleeds or mass effects. Valencia-white matter interface is normal. Brainstem appears normal. Normal intravascular flow voids are present. No abnormal intracranial enhancement. Skull and face: Calvarial marrow signal is normal. Orbits appear normal. Sinuses: Sinuses and mastoids are clear. Bilateral candis bullosa are incidentally noted. BRAIN MR ANGIOGRAM: Anterior circulation: Intracranial internal carotid arteries are normal in size and enhancement. The flow within the paired anterior cerebral arteries is normal and symmetric. The flow within the middle cerebral arteries is normal and symmetric. The anterior communicating artery is not well seen. No stenoses, occlusions, or aneurysms. Posterior circulation: The visualized portions of the vertebral arteries demonstrate normal caliber, and join to form a normal appearing basilar artery. There is a focal high-grade narrowing of at least 90% within the left P1 segment. The flow within the posterior cerebral arteries is otherwise normal and symmetric. No stenoses, occlusions, or aneurysms. NECK MR ANGIOGRAM: Carotids: Great vessels demonstrate a conventional anatomy as they arise from the aortic arch. The origins of the common carotid arteries appear patent. The calibers and courses of both common carotid arteries are normal. The bifurcation regions demonstrate mild atherosclerotic irregularity. There is approximately 50% stenosis seen involving the right proximal internal carotid artery. No significant stenosis can be seen on the left. The more distal internal carotid arteries demonstrate normal course and caliber. Posterior circulation: The origins of the vertebral arteries appear patent. More superior portions of both vertebral arteries demonstrate normal course and caliber, and join to form a normal appearing basilar artery. Miscellaneous: Subclavian arteries appear patent. Pre-contrast images through the neck show no soft tissue abnormalities. IMPRESSION: BRAIN MRI: Acute infarction seen involving the deep white matter of the right frontal lobe. Numerous white matter lesions are seen, which are characteristic for multiple sclerosis. The burden of the white matter lesions has progressed over time. These lesions do not enhance. No masses or abnormal enhancement can be seen. BRAIN MR ANGIOGRAM: There is a focal high-grade stenosis (at least 90%) within the LEFT P1 segment. This is new compared to 2009. This vascular lesion is not regarded to be the culprit for the patient's RIGHT-sided stroke. NECK MR ANGIOGRAM: Approximately 50% stenosis seen involving the right proximal internal carotid artery. Normal appearing vertebral arteries. Dictated by: Del Lucia M.D. on 11/25/2020 at 9:52 Approved by: Del Lucia M.D. on 11/25/2020 at 10:03
[2020-11-25 00:15] VITALS: BP 148/82; PULSE 67; RESP 18; TEMP 36.8; O2SAT 96
--- NOTE | 2020-11-25 02:27 | PC.NURSE ---
2351: patient is alert and oriented with an NIH of 1 due to occasional slurring of s sounds. States she has blurry vision and diplopia when looking to left as well as problems with depth perception none of which are new. Breath sounds CTA with RA sat of 96%. Placed on telemetry and reading was SR although when listening to heart had an occasional missed/extra beat. BP is elevated at 148/82 which is improved from readings in ER. Denies nausea. BT present and abdomen is soft. Denies dysuria, frequency or urgency with urination. Moves self in bed. States she has been unsteady with walking prior to hospitalization and has fallen in past 3 months so fall risk score is high; bed alarm is activated and patient is being provided SBA when out of bed. Denies pain.
[2020-11-25 06:00] VITALS: BP 142/73; PULSE 69; RESP 16; TEMP 36.4; O2SAT 96
[2020-11-25 06:06] LABS: Add Manual Diff / Slide Review NO; Basophils Absolute Auto 0 /uL (0-100); Basophils Percent Auto 0.3 % (0-2); Eosinophils Absolute Auto 300 /uL (0-450); Eosinophils Percent Auto 4.1 % (2-4); Hematocrit 40.6 % (36-46); Hemoglobin 13.8 g/dL (12.0-16.0); Lymphocytes Absolute Auto 2100 /uL (1100-4500); Lymphocytes Percent Auto 27.6 % (25-40); Mean Corpuscular HGB Conc 33.9 % (30-36); Mean Corpuscular Hemoglobin 29.5 PG (26-34); Monocytes Absolute Auto 800 /uL (0-900); Monocytes Percent Auto 10.4 % (3-14); Neutrophils Absolute Auto 4400 /uL (1500-7000); Neutrophils Percent Auto 57.6 % (50-75); Platelet Count 280 X10^3/uL (150-400); Red Blood Cell Count 4.67 X10^6/uL (4.0-5.2); Red Cell Distribution Width 13.2 % (11.6-14.8); White Blood Cell Count 7.6 X10^3/uL (4.5-11.0)
[2020-11-25 06:21] LABS: BUN Creatinine Ratio 13.6 (6-22); Blood Urea Nitrogen 12 mg/dL (7-17); Calcium 9.6 mg/dL (8.4-10.2); Carbon Dioxide 35 mmol/L (22-32); Chloride 106 mmol/L (98-107); Cholesterol 300 mg/dL (140-199); Estimated Glomerular Filt Rate > 60.0 mL/min (>60); Glucose 98 mg/dL (80-110); HDL Cholesterol 41 mg/dL (40-60); HEMOLYSIS < 15 (0-50); Magnesium 2.1 mg/dL (1.6-2.3); Potassium 4.5 mmol/L (3.4-5.1); Sodium 141 mmol/L (137-145); Triglycerides 402 mg/dL (35-150)
[2020-11-25 06:31] LABS: Troponin I < 0.012 ng/mL (0.01-0.034)
[2020-11-25 07:05] LABS: Thyroid Stimulating Hormone 3.22 uIU/mL (0.47-4.68)
[2020-11-25 07:42] VITALS: BP 163/63; PULSE 77; RESP 18; TEMP 36.2; O2SAT 96
[2020-11-25] MEDS: ASPIRIN EC 81 MG TABLET PO (09:24)
[2020-11-25] MEDS: CLOPIDOGREL 75 MG TABLET PO (09:24)
[2020-11-25] MEDS: ENOXAPARIN 40 MG/0.4 ML SYRINGE SUBCUT (10:24)
[2020-11-25] MEDS: VENLAFAXINE ER 75 MG CAP PO (10:24)
[2020-11-25] MEDS: VENLAFAXINE ER 75 MG CAP 150 MG PO (10:24)
[2020-11-25] MEDS: SODIUM CHLORIDE 0.9% FLUSH 10 ML IV (10:25)
[2020-11-25] MEDS: INFLUENZA HD VACCINE 0.7 ML SYRINGE IM (11:15)
--- NOTE | 2020-11-25 11:52 | PM.DS.1 ---
History of Present Illness History of Present Illness Date Patient Seen: 11/25/20 Time Patient Seen: 11:53 Chief complaint: Slurred speech, thinks TIA Narrative: Per FAITH Yo: Kelly Kam is a pleasant 70 y.o. female with multiple sclerosis who presented to the ED due to sudden onset difficulty with her speech. Stated she was on the phone with her friend prior to her returning home for lunch and felt that she was having difficulty speaking and some word finding difficulties. When her came home he observed her slurring. She stated she was having difficulty with pronouncing S and still feel she lisps. She denies visual changes, headache, difficulty swallowing, chest pain or palpitations, dyspnea, nausea or vomiting, dysurea, diarrhea or constipation, or any numbing or tingling. 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 She differentiates what happened today from her usual MS exacerbations which generally present with vision issues where she has double vision of her left eye. She sees a neurologist at [facility], had been taking medications for her MS, but is not currently doing so due to finances. She lives on [facility]. In the ED, her presenting blood pressure was 227/135. She is afebrile, currently her blood pressure is 130/91, heart rate 70, respiratory rate 17, oxygen saturation of 100% on room air she weighs 70.3 kg with a BMI of 29. Her labs essentially were all within normal limits, and she is COVID PCR negative. CT of the brain was negative. She was administered full strength in the ED. Discharge Providers Provider Date of admission: 11/24/20 20:12 Discharge Date: 11/25/20 Primary care physician: Dari Caldera MD Consults: 11/24/20 20:22 Consult to Speech Therapy Evaluate & Treat Comment: Physician Instructions: Evaluate and treat Discharge provider: Marcelo Barnard DO Summary Hospital Course Discharge Diagnosis: 1. Acute CVA, present on admission, stable 2. Hypertension, acute, improved 3. HLD, present on admission 4. Multiple sclerosis, chronic Hospital Course: Kelly Kam is a 70-year-old female with a past medical history of multiple sclerosis not on medications who presented with a mild speech deficit and facial asymmetry. MRI was performed and did show an acute infarct in her right frontal lobe. She had no progression of symptoms and actually some improvement. She was seen by speech therapy who provided the patient with exercises and stated that the patient was cleared for discharge home. She did not necessitate of physical or occupational therapy evaluation given her presentation. Echocardiogram was performed which was unremarkable and showed no evidence of an embolic mechanism. Her blood pressure in the morning after admission was well controlled, slightly elevated before discharge. I recommend that she follow-up with her primary care provider for further blood pressure management if needed as an outpatient. Patient was started on aspirin, Plavix for at least 30 days given her carotid imaging showed 90% stenosis in her left carotid artery which was not contributory toward her stroke. I recommend that she follow-up with a vascular surgeon for possible interventions given the severity stenosis. Her total cholesterol was also 300, as well as a triglyceride level 402. She was started on statin therapy and this should be repeated although she may need additional medications. Exam Vital Signs (past 8 hours): - 11/25/20 06:00 11/25/20 07:42 Temperature 97.6 F 97.2 F L Pulse Rate 69 77 Respiratory Rate 16 18 Blood Pressure 142/73 H 163/63 H Pulse Oximetry 96 96 Oxygen Delivery Method Room Air Oxygen Flow Rate 0 Narrative Exam Narrative: Gen: Alert, oriented, well-developed 70 y.o. female, non-toxic appearing HEENT: normocephalic, atraumatic, conjunctiva clear, sclera non-icteric, oral mucosa pink and moist Neck: supple, full ROM, no JVD, trachea is midline Resp: Lungs CTA, non-labored breathing CV: RRR, no murmur or rubs Abd: soft, non-tender, normoactive BTs Skin: no lesions or rashes, dry and intact Neuro: Mild lisp and subtle right sided asymmetry of the mouth. Alert and oriented X 4 w/no focal deficits. Speech clear and coherent. Extremities: Hebrinon nodes on both hands, moves all 4 extremities, is ambulatory, negative Moody?s sign Psyche: normal mood and affect. Objective Imaging MRI - head: Radiologist's impression: IMPRESSION: BRAIN MRI: Acute infarction seen involving the deep white matter of the right frontal lobe. Numerous white matter lesions are seen, which are characteristic for multiple sclerosis. The burden of the white matter lesions has progressed over time. These lesions do not enhance. No masses or abnormal enhancement can be seen. BRAIN MR ANGIOGRAM: There is a focal high-grade stenosis (at least 90%) within the LEFT P1 segment. This is new compared to 2009. This vascular lesion is not regarded to be the culprit for the patient's RIGHT-sided stroke. NECK MR ANGIOGRAM: Approximately 50% stenosis seen involving the right proximal internal carotid artery. Normal appearing vertebral arteries. Labs Result Diagrams: 11/25/20 05:33 11/25/20 05:33 Labs: Laboratory Results - last 24 hr 11/24/20 11/24/20 11/24/20 18:15 18:15 18:15 WBC 8.1 RBC 4.70 Hgb 13.7 Hct 41.2 MCV 87.6 MCH 29.2 MCHC 33.3 RDW 13.1 Plt Count 298 Neut % (Auto) 63.9 Lymph % (Auto) 22.7 L [place] % (Auto) 9.7 Eos % (Auto) 2.8 Baso % (Auto) 0.9 Neut # (Auto) 5200 Lymph # (Auto) 1800 [place] # (Auto) 800 Eos # (Auto) 200 Baso # (Auto) 100 PT 11.9 INR 1.0 APTT 31 Sodium 139 Potassium 3.9 Chloride 101 Carbon Dioxide 32 BUN 12 Creatinine 0.79 Estimated GFR > 60.0 BUN/Creatinine Ratio 15.2 Glucose 97 Hemoglobin A1c Calcium 9.8 Magnesium Total Bilirubin 0.1 L AST 28 ALT 26 Alkaline Phosphatase 114 Troponin I Total Protein 7.4 Albumin 4.3 Globulin 3.1 Albumin/Globulin Ratio 1.4 Triglycerides Cholesterol LDL Cholesterol, Calc HDL Cholesterol TSH SARS-CoV-2 (PCR) 11/24/20 11/24/20 11/25/20 18:15 19:24 05:33 WBC 7.6 RBC 4.67 Hgb 13.8 Hct 40.6 MCV 87.0 MCH 29.5 MCHC 33.9 RDW 13.2 Plt Count 280 Neut % (Auto) 57.6 Lymph % (Auto) 27.6 [place] % (Auto) 10.4 Eos % (Auto) 4.1 H Baso % (Auto) 0.3 Neut # (Auto) 4400 Lymph # (Auto) 2100 [place] # (Auto) 800 Eos # (Auto) 300 Baso # (Auto) 0 PT INR APTT Sodium Potassium Chloride Carbon Dioxide BUN Creatinine Estimated GFR BUN/Creatinine Ratio Glucose Hemoglobin A1c 5.6 Calcium Magnesium Total Bilirubin AST ALT Alkaline Phosphatase Troponin I Total Protein Albumin Globulin Albumin/Globulin Ratio Triglycerides Cholesterol LDL Cholesterol, Calc HDL Cholesterol TSH SARS-CoV-2 (PCR) Negative 11/25/20 11/25/20 05:33 05:33 WBC RBC Hgb Hct MCV MCH MCHC RDW Plt Count Neut % (Auto) Lymph % (Auto) [place] % (Auto) Eos % (Auto) Baso % (Auto) Neut # (Auto) Lymph # (Auto) [place] # (Auto) Eos # (Auto) Baso # (Auto) PT INR APTT Sodium 141 Potassium 4.5 Chloride 106 Carbon Dioxide 35 H BUN 12 Creatinine 0.88 Estimated GFR > 60.0 BUN/Creatinine Ratio 13.6 Glucose 98 Hemoglobin A1c Calcium 9.6 Magnesium 2.1 Total Bilirubin AST ALT Alkaline Phosphatase Troponin I < 0.012 Total Protein Albumin Globulin Albumin/Globulin Ratio Triglycerides 402 H Cholesterol 300 H LDL Cholesterol, Calc TNP HDL Cholesterol 41 TSH 3.22 SARS-CoV-2 (PCR) [facility] Medical History Multiple sclerosis Surgical History History of carpal tunnel repair (02/07/09) Hx of cholecystectomy Family History Father Heart disease CVA (cerebral vascular accident) Grandfather Alcoholism Grandmother Diabetes mellitus High cholesterol Mother Uterine cancer Social History household members: spouse Smoking Status: Never smoker alcohol intake: never Discharge Plan Discharge Plan Patient Disposition: Home Discharge orders & Medications Prescriptions: New aspirin 81 mg Tablet,Delayed Release (Dr/Ec) 81 mg PO DAILY 90 Days Qty: 90 RF: 0 atorvastatin 80 mg tablet 80 mg PO BEDTIME 30 Days Qty: 30 RF: 0 clopidogrel 75 mg Tablet 75 mg PO DAILY 30 Days Qty: 30 RF: 0 Continued multivitamin Tablet 1 tab PO DAILY RF: 0 venlafaxine 150 mg capsule,extended release 24hr 225 mg PO QDAY RF: 0 Fish Oil 1 cap PO QDAY RF: 0 Vitamin D3 1 tab PO QDAY RF: 0 Follow up/Referrals: Dari Caldera MD [Primary Care Provider] - Visit Report/Discharge Packet Instructions: Transient Ischemic Attack, DI for Transient Ischemic Attack, Atorvastatin, Clopidogrel Discharge Data Primary Care Provider: Dari Caldera Attending Provider: Cate Ramirez VTE Deep Vein Thrombosis/Pulmonary Embolism Present on Admission: No
[2020-11-25 11:59] LABS: Troponin I < 0.012 ng/mL (0.01-0.034)
[2020-11-25 12:12] VITALS: BP 179/90; PULSE 75; RESP 18; TEMP 36.1; O2SAT 95
--- NOTE | 2020-11-25 12:21 | ST.IPIE ---
Visit Care Team Role Provider Type Dari Caldera MD Primary Care Provider Physician Specialty: Family Practice Address: [address] [place] [address], [id number] Email: Jef Sapp DO Emergency Provider Physician Referring Provider Specialty: Emergency Medicine Address: [address] [place] [address], [id number] Email: [email or web address] Admit Provider Physician Attending Provider Specialty: Internal Medicine Address: [address] [place] [address], [id number] Email: [email or web address] Past Medical History (Last Reviewed 11/25/20 @ 03:14 by Jef Sapp DO) Multiple sclerosis (Medical) ST IP Initial Evaluation Report ORDERLY Motor Speech Evaluation Start: 11/25/20 12:07 Freq: Status: Active Protocol: Document 11/25/20 12:08 MG (Rec: 11/25/20 12:21 MG [id number]) Motor Speech Evaluation Session Time Visit Start Time 11:30 Visit Stop Time 12:05 Total Visit Minutes 35 Visit Information Visit Number 1 Setting Setting Acute Care Next Note Type Next Note Type Treatment Note Patient History Source: [employer] ([employer]). Patient History Kelly Kam is a pleasant 70 y.o. female with multiple sclerosis who presented to the ED on 11/24/2020 due to sudden onset difficulty with her speech. Stated she was on the phone with her friend prior to her returning home for lunch and felt that she was having difficulty speaking and some word finding difficulties. When her came home he observed her slurring. She stated she was having difficulty with pronouncing S and still feel she lisps. She denies visual changes, headache, difficulty swallowing, chest pain or palpitations, dyspnea, nausea or vomiting, dysurea, diarrhea or constipation, or any numbing or tingling. 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 She differentiates what happened today from her usual MS exacerbations which generally present with vision issues where she has double vision of her left eye. She sees a neurologist at [facility], had been taking medications for her MS, but is not currently doing so due to finances. She lives on [facility]. CT of the brain was negative. BRAIN MRI: Acute infarction seen involving the deep white matter of the right frontal lobe. Mental Status Mental Status Alert,Responsive,Cooperative Subjective Observations Subjective Pt was sitting upright in bed speaking with doctor. Pt was agreeable for speech therapy entering room and conducting evaluation. Oral Motor Lips Function WFL Tongue Function Mild Impairment Protrusion Mild weak movement Jaw Function WFL Soft Palate Function WFL Respiration/Phonation Tools Observations WFL Phonation Quality WFL Conversation Duration Mildly Impaired Function Mildly Impaired Diadochokinetic Rates P^ Quality WFL T^ Quality Mild Impairment Comments Slow and uncoordinated K^ Quality Mild Impairment Comments Slow and uncoordinated P^T^K^ Quality Moderate Impairment Comments Slow and uncoordinated Speech Intelligibility Conversation Severity WFL Comments 100% intelligible with noted slurring intermittantly. Did not impact communicative intent. Awareness/Strategy Use Description Type of awareness/use Uses consistently Findings Details Motor Speech Function Mild Impairment Assessment Details Assessment Pt presents with mild dysarthria as noted by slurring speech sounds, predominantly on /s/, th, and /l/. Pt reports that the slurred speech is not typical for her. Pt tongue strength is mildly weak on observed protrusion and uncoordinated movement for diadokinetic rate was observed. ORDERLY and pt went over treatment options and exercises. Pt appears motivated to follow through on home exercise program. Of note, ORDERLY performed laryngeal palpation to assess swallowing . This resulted in WFL movement of the larynx. ORDERLY observed pt eat lunch to further assess swallowing capabilities. Pt did not demonstrate any overt s/sx of aspiration. Pt reported no problems with consuming food or drink. Prognosis Rehabilitation Potential Excellent Recommendations Treatment Recommended Yes Short Term Goals 1. Pt will follow through on home exercise program with minimal reminders. 2. Pt will utilize speaking strategies when communicating with minimal reminders. Wrap Yarn Sorter Goals 1. Pt will speak fluently with minimal slurring noted. Patient/Family Education Education Described results of evaluation,Patient Understanding,Patient Demonstration
--- NOTE | 2020-11-25 13:45 | CM.DANOTE ---
Discharge Planning/Care Management DCP: assessment: case received, EMR reviewed and met with pt. Introduced self and role. Pt is a 73 year old female who admitted last night to care of hospitalist team. PCP: Dari Caldera P[facility] Pt is found up, dressed and preparing for her [place] ferry. She reports that she had an excellent session with the RAG CUTTING MACHINE TENDER and I now have lots of homework to do to improve my speech. She says she plans to followup on the results of her carotid artery study as recommended by Dr. Barnard. Pt expressed thankfulness for the excellent care she has received while in the hospital. Pt and her would like priority board ferry pass/PROJECT ADMIN should be able to process this. She is not sure which ferry they will take back to [facility]..will know more when her arrives. Advanced directive, confirm from FAMILY Start: 11/24/20 22:36 Freq: Q24H Status: Active Protocol: Document 11/24/20 22:36 AKP (Rec: 11/24/20 22:37 AK [id number]) Advance Directive, confirm on record Time 22:37 Person contacted spouse to bring in Copy received No CM Discharge Assessment Start: 11/25/20 13:44 Freq: Status: Active Protocol: Document 11/25/20 13:44 ITV (Rec: 11/25/20 13:45 ITV [id number]) Discharge Planning Assessment Advance Directives? Yes History Provided By Patient,Medical Record Has Patient been admitted in last 30 No days? Prior Living Arrangements House Household Members spouse Independent with ADL's Yes Is patient alert and oriented? Yes
--- NOTE | 2020-11-25 15:33 | PC.NURSE ---
1330- Discharge education given to pt, discussed- s/s of stroke, reasons to seek medical attention, new medication information, diet, activity. Pt expressed understanding of education. IV removed, intact, tolerated well. Pt dressed independently. 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
--- NOTE | 2020-11-25 15:44 | PC.NURSE ---
Discharge note: Patient left via wheelchair to personal vehicle with all her belongings.
== END 2020-11-25 15:40 | disposition home or self-care (01) ==
LOC: ED 20:10 → AC 20:13
PROVIDERS: Emergency Medicine; Admitting Provider Nurse Practitioner Family; Emergency Provider Emergency Medicine; PCP Family Medicine; Referring Provider Emergency Medicine; Visit Provider Nurse Practitioner Family
DX: I63.9 Cerebral infarction, unspecified (principal); R47.81 Slurred speech; H53.2 Diplopia; G35 Multiple sclerosis; Z20.822 Contact with and (suspected) exposure to COVID-19; Z23 Encounter for immunization
CPT/HCPCS: 36415; 70450; 70548; 70553; 80048; 80053; 80061; 81003; 83036; 83735; 84443; 84484; 85025; 85610; 85730; 87635; 90471; 90662; 92522; 93005; 93010; 93306; 96372; 99284; C9803; G0378; A9579; J1650

== ENCOUNTER → 2021-12-10 09:00 | Outpatient (CLI) | payer MEDICARE, SELFPAY ==
[2021-12-10 19:28] LABS: Add Manual Diff / Slide Review NO; Basophils Absolute Auto 0 /uL (0-100); Basophils Percent Auto 0.5 % (0-2); Eosinophils Absolute Auto 400 /uL (0-450); Eosinophils Percent Auto 4.6 % (2-4); Hematocrit 40.2 % (36-46); Hemoglobin 13.2 g/dL (12.0-16.0); Lymphocytes Absolute Auto 1500 /uL (1100-4500); Lymphocytes Percent Auto 19.6 % (25-40); Mean Corpuscular HGB Conc 32.9 % (30-36); Mean Corpuscular Hemoglobin 28.8 PG (26-34); Mean Corpuscular Volume 87.7 fL (80-100); Monocytes Absolute Auto 800 /uL (0-900); Monocytes Percent Auto 10.1 % (3-14); Neutrophils Absolute Auto 5000 /uL (1500-7000); Neutrophils Percent Auto 65.2 % (50-75); Platelet Count 286 X10^3/uL (150-400); Red Blood Cell Count 4.58 X10^6/uL (4.0-5.2); Red Cell Distribution Width 13.2 % (11.6-14.8); White Blood Cell Count 7.7 X10^3/uL (4.5-11.0)
[2021-12-10 19:43] LABS: Alanine Aminotransferase 48 IU/L (<35); Albumin 3.8 g/dL (3.5-5.0); Albumin Globulin Ratio 1.5 (1.0-2.8); Alkaline Phosphatase 99 U/L (38-126); Aspartate Aminotransferase 33 IU/L (14-36); BUN Creatinine Ratio 21.5 (6-22); Bilirubin Total 0.6 mg/dL (0.2-1.3); Blood Urea Nitrogen 17 mg/dL (7-17); Calcium 9.3 mg/dL (8.4-10.2); Carbon Dioxide 35 mmol/L (22-32); Chloride 104 mmol/L (98-107); Cholesterol 140 mg/dL (140-199); Estimated Glomerular Filt Rate > 60.0 mL/min (>60); Globulin 2.5 g/dL (1.7-4.1); Glucose 97 mg/dL (80-110); HDL Cholesterol 41 mg/dL (40-60); HEMOLYSIS < 15 (0-50); LDL Cholesterol Calculated 55 mg/dL (<100); Potassium 4.1 mmol/L (3.4-5.1); Sodium 140 mmol/L (137-145); Total Protein 6.3 g/dL (6.3-8.2); Triglycerides 220 mg/dL (35-150)
== END ==
PROVIDERS: PCP Family Medicine; Visit Provider Physician Assistant
DX: I10 Essential (primary) hypertension (principal); Z13.1 Encounter for screening for diabetes mellitus; R05.3 Chronic cough; G35 Multiple sclerosis
CPT/HCPCS: 80053; 80061; 83036; 85025

== ENCOUNTER → 2022-03-19 11:03 | Outpatient (CLI) | payer MEDICARE, SELFPAY ==
--- NOTE | 2022-03-19 11:07 | DI.CT.S_ITS ---
PROCEDURE: CT LUNG LOW DOSE SCREENING INDICATIONS: chronic cough x 1 yr+, 20 yr smoking history TECHNIQUE: Noncontrast 2.0-2.5 mm thick sections acquired from the pulmonary apices to the posterior costophrenic angles. 7 mm thick axial MIP, and 5 mm coronal and sagittal reformats were then acquired. A low radiation dose technique was utilized. COMPARISON: None. FINDINGS: Image quality: Diagnostic, given the low radiation dose technique. Lungs and pleura: Approximately 2 mm nodule in the right upper lobe on series 3, image 81. No other pulmonary nodule identified. No acute airspace opacity otherwise. Mediastinum: Normal heart size. No pericardial effusion. Normal caliber thoracic aorta. Aortic atherosclerosis. No threshold enlarged mediastinal lymph node Bones and chest wall: No suspicious lytic or blastic osseous chest wall lesion. Normal thoracic vertebral body height and alignment. Mild thoracic spine degenerative changes. No threshold enlarged axillary lymph node. Abdomen: Limited views of the included unenhanced upper abdomen demonstrate no acute finding. Cholecystectomy changes. IMPRESSION: Tiny 2 mm right upper lobe nodule is likely benign. LUNG-RADS 2; continued annual low-dose screening CT of the chest. Dictated by: Jose J cMnally M.D. on 03/19/2022 at 16:22 Approved by: Jose J Mcnally M.D. on 03/19/2022 at 16:25
== END ==
PROVIDERS: PCP Family Medicine; Referring Provider Physician Assistant; Visit Provider Physician Assistant
DX: R05.3 Chronic cough (principal); Z87.891 Personal history of nicotine dependence
CPT/HCPCS: 71250

== ENCOUNTER → 2022-07-23 14:32 | Outpatient (CLI) | payer MEDICARE, SELFPAY ==
[2022-03-25 10:02] VITALS: BMI 29.2
[2022-07-23 20:24] LABS: Add Manual Diff / Slide Review NO; Basophils Absolute Auto 0 /uL (0-100); Basophils Percent Auto 0.5 % (0-2); Eosinophils Absolute Auto 400 /uL (0-450); Eosinophils Percent Auto 4.5 % (2-4); Hematocrit 42.2 % (36-46); Hemoglobin 13.9 g/dL (12.0-16.0); Lymphocytes Absolute Auto 1400 /uL (1100-4500); Lymphocytes Percent Auto 18.5 % (25-40); Mean Corpuscular Hemoglobin 29.3 PG (26-34); Mean Corpuscular Volume 88.8 fL (80-100); Monocytes Absolute Auto 800 /uL (0-900); Neutrophils Absolute Auto 5200 /uL (1500-7000); Neutrophils Percent Auto 66.5 % (50-75); Platelet Count 280 X10^3/uL (150-400); Red Blood Cell Count 4.75 X10^6/uL (4.0-5.2); Red Cell Distribution Width 13.4 % (11.6-14.8); White Blood Cell Count 7.8 X10^3/uL (4.5-11.0)
[2022-07-23 20:28] LABS: Alanine Aminotransferase 38 IU/L (<35); Albumin 4.1 g/dL (3.5-5.0); Albumin Globulin Ratio 1.5 (1.0-2.8); Alkaline Phosphatase 135 U/L (38-126); Aspartate Aminotransferase 28 IU/L (14-36); BUN Creatinine Ratio 22.2 (6-22); Bilirubin Total 0.2 mg/dL (0.2-1.3); Blood Urea Nitrogen 16 mg/dL (7-17); Calcium 9.3 mg/dL (8.4-10.2); Carbon Dioxide 33 mmol/L (22-32); Chloride 103 mmol/L (98-107); Estimated Glomerular Filt Rate > 60 mL/min (>60); Globulin 2.8 g/dL (1.7-4.1); Glucose 82 mg/dL (80-110); HEMOLYSIS < 15 (0-50); Sodium 143 mmol/L (137-145); Total Protein 6.9 g/dL (6.3-8.2)
[2022-07-23 21:02] LABS: TSH w/ Reflex to FT4 5.85 uIU/mL (0.47-4.68)
[2022-07-23 21:04] LABS: Ferritin 59 ng/mL (11-264)
[2022-07-23 21:18] LABS: Vitamin B12 865 pg/mL (239-931)
[2022-07-23 22:59] LABS: Free T4, Direct Thyroxine 0.83 ng/dL (0.78-2.19)
== END ==
PROVIDERS: PCP Physician Assistant; Visit Provider Physician Assistant
DX: M25.512 Pain in left shoulder (principal); F32.5 Major depressive disorder, single episode, in full remission; G35 Multiple sclerosis; G62.9 Polyneuropathy, unspecified; I10 Essential (primary) hypertension; R05.3 Chronic cough; R09.82 Postnasal drip
CPT/HCPCS: 80053; 82607; 82728; 84439; 84443; 85025

== ENCOUNTER → 2022-10-09 12:14 | Outpatient (CLI) | payer MEDICARE, SELFPAY ==
[2022-03-25 10:02] VITALS: BMI 29.2
== END ==
PROVIDERS: PCP Physician Assistant; Referring Provider Physician Assistant; Visit Provider Physician Assistant
DX: Z78.0 Asymptomatic menopausal state (principal); Z13.820 Encounter for screening for osteoporosis; M85.852 Other specified disorders of bone density and structure, left thigh
CPT/HCPCS: 77080

== ENCOUNTER → 2023-04-23 13:23 | Outpatient (CLI) | payer MEDICARE, SELFPAY ==
[2022-03-25 10:02] VITALS: BMI 29.2
[2023-04-23 20:00] LABS: Alanine Aminotransferase 41 IU/L (<35); Albumin 3.8 g/dL (3.5-5.0); Albumin Globulin Ratio 1.6 (1.0-2.8); Alkaline Phosphatase 123 U/L (38-126); Aspartate Aminotransferase 30 IU/L (14-36); BUN Creatinine Ratio 24.4 (6-22); Bilirubin Total 0.3 mg/dL (0.2-1.3); Blood Urea Nitrogen 19 mg/dL (7-17); Calcium 9.2 mg/dL (8.4-10.2); Carbon Dioxide 32 mmol/L (22-32); Chloride 104 mmol/L (98-107); Estimated Glomerular Filt Rate > 60 mL/min (>60); Gamma Glutamyl Transpeptidase 25 U/L (12-43); Globulin 2.4 g/dL (1.7-4.1); Glucose 112 mg/dL (80-110); HEMOLYSIS < 15 (0-50); Sodium 140 mmol/L (137-145); Total Protein 6.2 g/dL (6.3-8.2)
[2023-04-23 20:16] LABS: Free T4, Direct Thyroxine 0.76 ng/dL (0.78-2.19)
[2023-04-23 20:30] LABS: Thyroid Stimulating Hormone 0.128 uIU/mL (0.47-4.68)
== END ==
PROVIDERS: PCP Physician Assistant; Visit Provider Physician Assistant
DX: E78.5 Hyperlipidemia, unspecified (principal); F32.5 Major depressive disorder, single episode, in full remission; E03.8 Other specified hypothyroidism
CPT/HCPCS: 80053; 82977; 84439; 84443

== ENCOUNTER → 2023-05-21 09:10 | Outpatient (CLI) | payer MEDICARE, SELFPAY ==
[2022-03-25 10:02] VITALS: BMI 29.2
--- NOTE | 2023-05-21 09:11 | DI.CT.S_ITS ---
PROCEDURE: CT CHEST WO CON INDICATIONS: f/u lung nodule, compare to previous, past smoker 20 yrs TECHNIQUE: Noncontrast 5 mm thick sections acquired from the pulmonary apices to the posterior costophrenic angles. 1 mm lung window, 5 mm thick coronal and sagittal and 7 mm axial MIP reformats were then acquired. For radiation dose reduction, the following was used: automated exposure control, adjustment of mA and/or kV according to patient size. COMPARISON: [facility], CT, CT LUNG LOW DOSE SCREENING, 03/19/2022, 11:10. FINDINGS: Lungs and pleura: Previously demonstrated 2 mm right upper lobe nodule (series 3, image 88) is unchanged. No definite new suspicious or enlarging pulmonary nodule. No consolidation or pleural effusion. Mediastinum: No pericardial effusion. Thoracic aorta and central pulmonary arteries are normal in size. Esophagus is normal in caliber. Bones and chest wall: Multilevel degenerative change of the visualized spine. No axillary or supraclavicular adenopathy by size criteria. Abdomen: Prior cholecystectomy. IMPRESSION: Previously demonstrated tiny right upper lobe pulmonary nodule is unchanged. No definite new suspicious or enlarging pulmonary nodule identified. Dictated by: Zachery Shetty M.D. on 05/21/2023 at 16:13 Approved by: Zachery Shetty M.D. on 05/21/2023 at 16:23
== END ==
PROVIDERS: PCP Physician Assistant; Referring Provider Physician Assistant; Visit Provider Physician Assistant
DX: R91.1 Solitary pulmonary nodule (principal); Z87.891 Personal history of nicotine dependence; Z90.49 Acquired absence of other specified parts of digestive tract
CPT/HCPCS: 71250

== ENCOUNTER → 2023-05-26 12:58 | Outpatient (CLI) | payer MEDICARE, SELFPAY ==
[2022-03-25 10:02] VITALS: BMI 29.2
[2023-05-26 20:22] LABS: Alanine Aminotransferase 65 IU/L (<35)
[2023-05-26 20:26] LABS: Free T3, Triiodothyronine Free 3.45 pg/mL (2.77-5.27); Free T4, Direct Thyroxine 0.73 ng/dL (0.78-2.19)
[2023-05-26 20:40] LABS: Thyroid Stimulating Hormone 0.124 uIU/mL (0.47-4.68)
[2023-05-26 20:52] LABS: Hepatitis B Surface Antigen NEGATIVE s/c (NEGATIVE)
[2023-05-26 21:17] LABS: Hep C Virus Ab w/Reflex Quant NEGATIVE s/c (NEGATIVE)
[2023-05-28 00:03] LABS: Hepatitis B Core AB w/Reflex Negative (Negative)
[2023-05-28 06:36] LABS: Hepatitis A Ab IgM Negative (Negative); Hepatitis A Ab Total Positive (Negative)
== END ==
PROVIDERS: PCP Physician Assistant; Visit Provider Physician Assistant
DX: F32.5 Major depressive disorder, single episode, in full remission (principal); E03.8 Other specified hypothyroidism; R74.8 Abnormal levels of other serum enzymes
CPT/HCPCS: 84439; 84443; 84460; 84481; 86376; 86704; 86708; 86800; 86803; 87340

== ENCOUNTER → 2023-06-05 10:49 | Outpatient (CLI) | payer MEDICARE, SELFPAY ==
[2022-03-25 10:02] VITALS: BMI 29.2
--- NOTE | 2023-06-05 10:50 | DI.US.S_ITS ---
PROCEDURE: US ABDOMEN LIMITED INDICATIONS: ELEVATED ALT TECHNIQUE: Real-time scanning was performed of the abdominal, with image documentation. COMPARISON: [facility], CT, CT CHEST WO CON, 05/21/2023, 9:48. FINDINGS: Liver: Measures 13.3 cm. Echogenicity is within normal limits. Hepatopetal flow of the main portal vein. Gallbladder: Absent. Biliary ducts: Intrahepatic bile ducts are non-dilated. Extrahepatic bile duct caliber measures 6 mm. Normal is 6-7 mm or less in diameter, or 10 mm or less post-cholecystectomy. Pancreas: Visualized portions of the pancreas are sonographically normal. IMPRESSION: Sonographic appearance of the liver is within normal limits. Post cholecystectomy. Dictated by: Sam Head M.D. on 06/05/2023 at 12:58 Approved by: Sam Head M.D. on 06/05/2023 at 12:59
== END ==
PROVIDERS: PCP Physician Assistant; Referring Provider Physician Assistant; Visit Provider Physician Assistant
DX: R74.8 Abnormal levels of other serum enzymes (principal); Z90.49 Acquired absence of other specified parts of digestive tract
CPT/HCPCS: 76705

== ENCOUNTER → 2023-06-10 10:54 | Outpatient (CLI) | payer MEDICARE, SELFPAY ==
[2022-03-25 10:02] VITALS: BMI 29.2
[2023-06-12 17:14] LABS: Anti Thyroglobulin Antibody <1.0 IU/mL (0.0-0.9); Thyroid Peroxidase Antibodies 13 IU/mL (0-34)
== END ==
PROVIDERS: PCP Family Medicine; Visit Provider Physician Assistant
DX: R79.89 Other specified abnormal findings of blood chemistry (principal)
CPT/HCPCS: 86376; 86800

== ENCOUNTER → 2023-06-23 10:47 | Outpatient (CLI) | payer MEDICARE, SELFPAY ==
[2022-03-25 10:02] VITALS: BMI 29.2
[2023-06-23 19:33] LABS: Add Manual Diff / Slide Review NO; Basophils Absolute Auto 100 /uL (0-100); Basophils Percent Auto 0.8 % (0-2); Eosinophils Absolute Auto 500 /uL (0-450); Eosinophils Percent Auto 6.9 % (2-4); Hematocrit 41.3 % (36-46); Hemoglobin 13.6 g/dL (12.0-16.0); Lymphocytes Absolute Auto 1600 /uL (1100-4500); Lymphocytes Percent Auto 21.2 % (25-40); Mean Corpuscular HGB Conc 33.1 % (30-36); Mean Corpuscular Hemoglobin 29.3 PG (26-34); Mean Corpuscular Volume 88.6 fL (80-100); Monocytes Absolute Auto 900 /uL (0-900); Monocytes Percent Auto 11.9 % (3-14); Neutrophils Absolute Auto 4300 /uL (1500-7000); Neutrophils Percent Auto 59.2 % (50-75); Platelet Count 284 X10^3/uL (150-400); Red Blood Cell Count 4.66 X10^6/uL (4.0-5.2); Red Cell Distribution Width 13.1 % (11.6-14.8); White Blood Cell Count 7.3 X10^3/uL (4.5-11.0)
[2023-06-23 20:00] LABS: Alanine Aminotransferase 57 IU/L (<35); Albumin Globulin Ratio 1.5 (1.0-2.8); Alkaline Phosphatase 118 U/L (38-126); Aspartate Aminotransferase 33 IU/L (14-36); BUN Creatinine Ratio 22.7 (6-22); Bilirubin Total 0.3 mg/dL (0.2-1.3); Blood Urea Nitrogen 17 mg/dL (7-17); C-Reactive Protein Quant < 0.5 mg/dL (<1.0); Calcium 9.5 mg/dL (8.4-10.2); Carbon Dioxide 31 mmol/L (22-32); Chloride 102 mmol/L (98-107); Estimated Glomerular Filt Rate > 60 mL/min (>60); Globulin 2.6 g/dL (1.7-4.1); Glucose 93 mg/dL (80-110); HEMOLYSIS < 15 (0-50); Potassium 4.2 mmol/L (3.4-5.1); Sodium 140 mmol/L (137-145); Total Protein 6.6 g/dL (6.3-8.2)
[2023-06-23 20:11] LABS: Free T3, Triiodothyronine Free 4.27 pg/mL (2.77-5.27); Free T4, Direct Thyroxine 0.84 ng/dL (0.78-2.19)
[2023-06-23 20:24] LABS: Thyroid Stimulating Hormone 5.46 uIU/mL (0.47-4.68)
[2023-06-23 20:31] LABS: Erythrocyte Sedimentation Rate 5 MM/HR (0-20)
[2023-06-25 01:26] LABS: Hepatitis B Core Antibody Negative (Negative)
[2023-06-25 18:07] LABS: Free Kappa Lt Chains, Serum 21.2 mg/L (3.3-19.4); Free Lambda Lt Chains,Serum 14.8 mg/L (5.7-26.3)
[2023-06-26 05:32] LABS: Hepatitis B Surf Ab Qualitativ Non Reactive (.)
[2023-06-26 13:36] LABS: Albumin 3.5 g/dL (2.9-4.4); Alpha-1-Globulin 0.2 g/dL (0.0-0.4); Alpha-2-Globulin 0.7 g/dL (0.4-1.0); Gamma Globulin 0.9 g/dL (0.4-1.8); Globulin Total 2.7 g/dL (2.2-3.9); Protein, Total 6.2 g/dL (6.0-8.5)
== END ==
PROVIDERS: PCP Family Medicine; Visit Provider Family Medicine
DX: G62.9 Polyneuropathy, unspecified (principal); F32.5 Major depressive disorder, single episode, in full remission; R79.89 Other specified abnormal findings of blood chemistry; R74.8 Abnormal levels of other serum enzymes; R94.6 Abnormal results of thyroid function studies; R00.2 Palpitations
CPT/HCPCS: 80053; 83883; 84155; 84165; 84439; 84443; 84481; 85025; 85651; 86140; 86704; 86706

== ENCOUNTER → 2023-09-17 11:33 | Outpatient (CLI) | payer MEDICARE, SELFPAY ==
[2022-03-25 10:02] VITALS: BMI 29.2
[2023-09-17 20:51] LABS: Thyroid Stimulating Hormone 5.89 uIU/mL (0.47-4.68)
== END ==
PROVIDERS: PCP Family Medicine; Visit Provider Family Medicine
DX: R94.6 Abnormal results of thyroid function studies (principal); E03.8 Other specified hypothyroidism
CPT/HCPCS: 84443

== ENCOUNTER → 2023-12-04 11:02 | Outpatient (CLI) | payer MEDICARE, SELFPAY ==
[2022-03-25 10:02] VITALS: BMI 29.2
[2023-12-04 19:34] LABS: Free T4, Direct Thyroxine 1.04 ng/dL (0.78-2.19)
[2023-12-04 19:48] LABS: Thyroid Stimulating Hormone 5.07 uIU/mL (0.47-4.68)
== END ==
PROVIDERS: PCP Family Medicine; Visit Provider Student in an Organized Health Care Education/Training Program
DX: E03.9 Hypothyroidism, unspecified (principal)
CPT/HCPCS: 84439; 84443

== ENCOUNTER → 2024-02-20 13:20 | Outpatient (CLI) | payer MEDICARE, SELFPAY ==
[2023-12-08 10:42] VITALS: BMI 29.2
[2024-02-20 19:36] LABS: Free T4, Direct Thyroxine 0.92 ng/dL (0.78-2.19)
[2024-02-20 19:50] LABS: Thyroid Stimulating Hormone 2.37 uIU/mL (0.47-4.68)
== END ==
PROVIDERS: PCP Family Medicine; Visit Provider Student in an Organized Health Care Education/Training Program
DX: E03.9 Hypothyroidism, unspecified (principal)
CPT/HCPCS: 84439; 84443

== ENCOUNTER → 2024-06-28 08:20 | Outpatient (CLI) | payer MEDICARE, SELFPAY ==
[2023-12-08 10:42] VITALS: BMI 29.2
[2024-06-28 18:38] LABS: Add Manual Diff / Slide Review NO; Basophils Absolute Auto 0 /uL (0-100); Basophils Percent Auto 0.6 % (0-2); Eosinophils Absolute Auto 500 /uL (0-450); Eosinophils Percent Auto 6.5 % (2-4); Hematocrit 42.4 % (36-46); Hemoglobin 14.1 g/dL (12.0-16.0); Lymphocytes Absolute Auto 1800 /uL (1100-4500); Lymphocytes Percent Auto 26.1 % (25-40); Mean Corpuscular HGB Conc 33.3 % (30-36); Mean Corpuscular Hemoglobin 29.5 PG (26-34); Mean Corpuscular Volume 88.6 fL (80-100); Monocytes Absolute Auto 700 /uL (0-900); Monocytes Percent Auto 9.9 % (3-14); Neutrophils Absolute Auto 4000 /uL (1500-7000); Neutrophils Percent Auto 56.9 % (50-75); Platelet Count 291 X10^3/uL (150-400); Red Blood Cell Count 4.79 X10^6/uL (4.0-5.2); Red Cell Distribution Width 12.9 % (11.6-14.8)
[2024-06-28 18:49] LABS: Alanine Aminotransferase 56 IU/L (<35); Albumin 3.7 g/dL (3.5-5.0); Albumin Globulin Ratio 1.3 (1.0-2.8); Alkaline Phosphatase 149 U/L (38-126); Aspartate Aminotransferase 54 IU/L (14-36); BUN Creatinine Ratio 18.8 (6-22); Bilirubin Total 0.4 mg/dL (0.2-1.3); Blood Urea Nitrogen 15 mg/dL (7-17); Calcium 9.7 mg/dL (8.4-10.2); Carbon Dioxide 31 mmol/L (22-32); Chloride 103 mmol/L (98-107); Cholesterol 132 mg/dL (140-199); Estimated Glomerular Filt Rate > 60 mL/min (>60); Globulin 2.9 g/dL (1.7-4.1); Glucose 98 mg/dL (80-110); HDL Cholesterol 50 mg/dL (40-60); HEMOLYSIS 16 (0-50); LDL Cholesterol Calculated 47 mg/dL (<100); Potassium 3.9 mmol/L (3.4-5.1); Sodium 139 mmol/L (137-145); Total Protein 6.6 g/dL (6.3-8.2); Triglycerides 173 mg/dL (35-150)
[2024-06-28 19:26] LABS: Thyroid Stimulating Hormone 3.74 uIU/mL (0.47-4.68)
== END ==
PROVIDERS: PCP Family Medicine; Referring Provider Family Medicine; Visit Provider Family Medicine
DX: I10 Essential (primary) hypertension (principal); E78.5 Hyperlipidemia, unspecified; E03.9 Hypothyroidism, unspecified
CPT/HCPCS: 80053; 80061; 84443; 85025

== ENCOUNTER → 2024-09-20 11:46 | Outpatient (CLI) | payer MEDICARE, SELFPAY ==
[2024-07-06 13:03] VITALS: BMI 29.2
[2024-09-20 19:48] LABS: HEMOLYSIS < 15 (0-50); Iron 95 ug/dL (37-170)
[2024-09-20 19:49] LABS: Alanine Aminotransferase 61 IU/L (<35); Albumin 4.1 g/dL (3.5-5.0); Albumin Globulin Ratio 1.6 (1.0-2.8); Alkaline Phosphatase 131 U/L (38-126); Aspartate Aminotransferase 55 IU/L (14-36); Bilirubin Total 0.5 mg/dL (0.2-1.3); Bilirubin Unconjugated 0.2 mg/dL (0.0-1.1); Blood Urea Nitrogen 17 mg/dL (7-17); Calcium 9.2 mg/dL (8.4-10.2); Carbon Dioxide 30 mmol/L (22-32); Chloride 105 mmol/L (98-107); Estimated Glomerular Filt Rate > 60 mL/min (>60); Globulin 2.6 g/dL (1.7-4.1); Glucose 96 mg/dL (80-110); HEMOLYSIS < 15 (0-50); Sodium 140 mmol/L (137-145); Total Protein 6.7 g/dL (6.3-8.2)
[2024-09-20 19:57] LABS: INR 0.9 (0.9-1.3); PTT Partial Thromboplastin Tim 35 SECONDS (25.1-36.5); Prothrombin Time 10.6 SECONDS (9.4-12.5)
[2024-09-20 20:03] LABS: Percent Iron Saturation 34 % (15-50); Total Iron Binding Capacity 277 ug/dL (265-497); Transferrin 262 mg/dL (206-381)
[2024-09-20 20:28] LABS: Ferritin 90 ng/mL (11-264)
[2024-09-22 03:36] LABS: Ceruloplasmin 22.8 mg/dL (19.0-39.0)
== END ==
PROVIDERS: PCP Family Medicine; Visit Provider Family Medicine
DX: K75.9 Inflammatory liver disease, unspecified (principal); I10 Essential (primary) hypertension
CPT/HCPCS: 80048; 80076; 82390; 82728; 83540; 83550; 83883; 84155; 84165; 85610; 85730; 86038

== ENCOUNTER → 2024-10-18 09:05 | Outpatient (CLI) | payer MEDICARE, SELFPAY ==
[2024-07-06 13:03] VITALS: BMI 29.2
--- NOTE | 2024-10-18 09:28 | EKG_ITS ---
[address] [address] Test Date: 2024-10-18 Pat Name: Kelly Bustillos Department: [facility] Room: Gender: Female Retail Inventory Control Clerk: CHARLI : 1950 Requested By: Order Number: [id number] Reading MD: Fabian Hernandez MD Measurements Intervals [place] Rate: 73 P: 37 CO: 192 QRS: 4 QRSD: 80 T: 47 QT: 394 QTc: 434 Interpretive Statements Normal sinus rhythm Electronically Signed On 10-18-2024 16:45:50 PST by Fabian Hernandez MD
[2024-10-18 10:06] LABS: Add Manual Diff / Slide Review NO; Basophils Absolute Auto 100 /uL (0-100); Basophils Percent Auto 1.2 % (0-2); Eosinophils Absolute Auto 600 /uL (0-450); Eosinophils Percent Auto 6.7 % (2-4); Hematocrit 43.6 % (36-46); Hemoglobin 14.3 g/dL (12.0-16.0); Lymphocytes Absolute Auto 1800 /uL (1100-4500); Lymphocytes Percent Auto 22.1 % (25-40); Mean Corpuscular HGB Conc 32.8 % (30-36); Mean Corpuscular Hemoglobin 28.9 PG (26-34); Mean Corpuscular Volume 88.1 fL (80-100); Monocytes Absolute Auto 800 /uL (0-900); Monocytes Percent Auto 9.5 % (3-14); Neutrophils Absolute Auto 5000 /uL (1500-7000); Neutrophils Percent Auto 60.5 % (50-75); Platelet Count 318 X10^3/uL (150-400); Red Blood Cell Count 4.95 X10^6/uL (4.0-5.2); Red Cell Distribution Width 13.4 % (11.6-14.8); White Blood Cell Count 8.2 X10^3/uL (4.5-11.0)
[2024-10-18 10:15] LABS: Hemoglobin A1C% w Est Avg Glu 5.7 % (4.0-6.0)
[2024-10-18 10:24] LABS: Albumin 4.3 g/dL (3.5-5.0); Blood Urea Nitrogen 21 mg/dL (7-17); Calcium 9.7 mg/dL (8.4-10.2); Carbon Dioxide 33 mmol/L (22-32); Chloride 103 mmol/L (98-107); Estimated Glomerular Filt Rate > 60 mL/min (>60); Glucose 107 mg/dL (80-110); HEMOLYSIS < 15 (0-50); Potassium 5.1 mmol/L (3.4-5.1); Sodium 141 mmol/L (137-145)
[2024-10-18 10:32] LABS: Prealbumin 28.7 mg/dL (17.6-36.0)
[2024-10-18 10:43] LABS: Vitamin D 25 Hydroxy (D3) 57.6 ng/mL (30.0-100.0)
== END ==
PROVIDERS: PCP Family Medicine; Referring Provider Orthopaedic Surgery Adult Reconstructive Orthopaedic Surgery; Visit Provider Orthopaedic Surgery Adult Reconstructive Orthopaedic Surgery
DX: Z01.818 Encounter for other preprocedural examination (principal); R73.9 Hyperglycemia, unspecified; E55.9 Vitamin D deficiency, unspecified; R77.0 Abnormality of albumin; Z01.812 Encounter for preprocedural laboratory examination
CPT/HCPCS: 36415; 80048; 82040; 82306; 83036; 84134; 85025; 93005; 93010

== ENCOUNTER 2024-12-06 08:56 | Day surgery (SDC) | payer MEDICARE, SELFPAY ==
[2024-07-06 13:03] VITALS: BMI 29.2
[2024-11-26 12:26] VITALS: BMI 28.3
[2024-12-06] VITALS (15 sets, daily range): BP systolic 115–179; BP diastolic 67–89; PULSE 70–103; RESP 14–18; TEMP 36.2–36.6; O2SAT 94–99; BMI 28.3
--- NOTE | 2024-12-06 | DI.RAD.S_ITS ---
PROCEDURE: XR HIP W PEL IF DONE LT 2V INDICATIONS: TOTAL HIP TECHNIQUE: 6 fluoroscopic view(s) of the hip acquired. COMPARISON: None. FINDINGS: Bones: Patient is status post left hip arthroplasty, with hardware components in expected positions. The hip joint appears congruent. The visualized bony structures appear intact. IMPRESSION: Expected intraoperative fluoroscopic views the left hip and hardware without evidence of complication. Dictated by: Pj Hayden M.D. on 12/07/2024 at 5:15 Approved by: Pj Hayden M.D. on 12/07/2024 at 5:16
--- NOTE | 2024-12-06 06:00 | DI.RAD.S_ITS ---
PROCEDURE: XR HIP W PEL IF DONE LT 2V INDICATIONS: HIGINIO TECHNIQUE: 2 view(s) of the hip acquired. COMPARISON: [facility], CR, XR HIP W PEL IF DONE LT 2V, 12/06/2024, 11:56. FINDINGS: Bones: Patient is status post left hip arthroplasty, with hardware components in expected positions. The hip joint appears congruent. The visualized bony structures appear intact. Soft tissues: Overlying postoperative changes are noted. No suspicious soft tissue densities. IMPRESSION: Expected post-operative appearance of a hip arthroplasty. Dictated by: Carisa Jj MD, PhD on 12/07/2024 at 12:01 Approved by: Carisa Jj MD, PhD on 12/07/2024 at 12:02
[2024-12-06] MEDS: LACTATED RINGERS 1,000 ML 42 ML IV ×2 (09:52→16:22)
[2024-12-06] MEDS: ACETAMINOPHEN 325 MG TABLET 975 MG PO (09:54)
[2024-12-06] MEDS: CELECOXIB 200 MG CAPSULE 400 MG PO (09:54)
--- NOTE | 2024-12-06 10:55 | PM.PREOP ---
Pre-operative Note Interval Note History & Physical reviewed/Exam performed by Physician: Yes Changes to H&P: No
[2024-12-06] MEDS: CEFAZOLIN 2 GM/100 ML PREMIX 100 ML IV (11:30)
--- NOTE | 2024-12-06 11:32 | SUR.OPER ---
Supine on padded [place] table with bilateral legs secured in padded positioning boots and suspended in positioning spars, operative leg in traction per surgeon. Head on one pillow. Bilateral arms secured on padded armboard <90 degrees abduction. Padded perineal post in place per surgeon.
[2024-12-06] MEDS: TRANEXAMIC ACID 1,000 MG VIAL 1000 MG INJ ×2 (11:43→12:26)
[2024-12-06] MEDS: ROPIVACAINE/EPI/CLONIDINE/KET 50 ML SYRINGE INJ (11:44)
--- NOTE | 2024-12-06 12:44 | P.OP_ITS ---
Operative Date/Time/Diagnoses Date of procedure: 12/06/24 Pre-op diagnosis: Left hip osteoarthritis Post-op diagnosis: same Procedure & Clinicians Procedure: Left total hip arthroplasty Same procedure as scheduled: Yes Surgeon: Cameron Guadalupe Surveillance Director: Marti Dacosta Operative Notes Estimated Blood Loss (mL): 250 Procedure in detail: Left Uncemented Direct Anterior Depuy Total Hip Arthroplasty: Implants: * [place] Gription size 54 cup? * Actis femoral stem size 4 high offset? * 36 mm +1.5 ceramic femoral head? Procedure Summary: This 74-year-old female patient is a very slender female in her 70s. From a demographic perspective she is at very high risk for osteoporosis but a DEXA scan which was obtained recently demonstrated a T-score of -1.4. I therefore did not plan to use cemented fixation on her femur. Intraoperatively I found bone quality to be good for her age. There was a robust pinch fit with her acetabular component without the need for screws and good cancellous bone when broaching for the femur. Trialed with the templated implants and stability was very good. Reduction was challenging and offset appeared to be slightly increased as compared to the other side however templating standard offset components preoperatively had demonstrated that this would result in diminished offset so I did not utilize that. She had very high passive external rotation after reduction, with the ability to externally rotate as far as 140? with final components in place. Procedure in Detail: This patient was seen preoperatively and evaluated for hip pain which was refra ctory to numerous nonoperative treatment modalities. Their hip pain correlated with radiographic changes demonstrating significant degeneration in the hip joint. The risks and benefits of continued nonoperative management versus operative management were discussed at length and all of the patient?s questions were answered. Additional educational materials providing further details beyond our discussion in clinic were provided via a publicly available patient education video which included the incidence of medical complications associated with total hip arthroplasty, reasons for revision following total hip arthroplasty, and patient satisfaction rates following total hip arthroplasty. That video can be accessed at [email or web address] . With this understanding of the risks inherent to the procedure, the patient elected to move forward with operative management. Following preoperative optimization, the patient was scheduled for surgery. The patient was met in the preoperative holding area the day of the procedure and all questions were answered. The patient?s nares were swabbed with betadine in order to decolonize them from MRSA. Informed consent was signed and the left limb was marked with indelible ink.? The patient was brought back to the operating room where anesthesia was induced. The patient was transferred to the [place] table and all bony prominences were padded. The operative site was prepped and draped in the usual sterile fashion. Prior to incision, tranexamic acid and cefazolin were administered. Operative templating images were displayed demonstrating the anticipated implant sizes and correct operative extremity. A timeout procedure was performed verifying the patient?s identity, medical comorbidities, allergies, relevant medications, anesthesia type and the surgical plan. All present were in agreement. The assistance of a physician auction assistant was required for positioning, room setup, soft tissue retraction and wound closure. Without this assistance, the procedure would have been significantly more challenging and time consuming.?? A direct anterior approach to the hip was utilized. This was performed with a longitudinal incision through a Heuter interval. The incision was planned 2 cm distal and 2 cm lateral to the ASIS extending towards the lateral patella, in line with the muscle body of the TFL. Following incision, the subcutaneous tissue was dissected while taking care to avoid injury to the lateral femoral cutaneous nerve. The fascia overlying the TFL was identified by dissecting off the overlying fat and identifying perforating vessels to the TFL. The TFL fascia was incised and dissected away from the medial border of the TFL. A cobra retr actor was placed over the superior femoral neck between the abductors and the hip capsule and used to reflect the TFL laterally. A [place] self-retainer was then placed in the distal aspect of the wound between the TFL and the rectus femoris. This was tensioned to open up the direct anterior interval and the lateral circumflex vessels were identified and coagulated using electrocautery. The floor of the TFL fascia was incised, exposing the pericapsular fat overlying the hip capsule. A second cobra retractor was placed on the inferior femoral neck. A double-bent soft tissue retractor was placed on the anterior wall of the acetabulum and used to tension the reflected head of rectus femoris, which was then released in order to limit soft tissue tension. A capsulotomy was made in the midline of the anterior hip capsule in line with the femoral neck ending at the vastus tubercle. The double-bent retractor was removed in order to limit the amount of time that a soft tissue retractor remained on the anterior wall and protect the femoral nerve. Tag stitches were placed in the superior and inferior leaflets of the hip capsule. An Berny soft tissue retractor was introduced over the tag stitches and tensioned in the interval between the rectus femoris and the TFL in order to retract and protect those muscles. The cobra retractors were replaced intracapsularly, with one over the superior neck in the pocket created by the base of the greater trochanter and the other on the femoral head. The capsulotomy was extended laterally to the base of the greater trochanter and medially to the lesser trochanter. This required externally rotating the hip. Once the lesser trochanter had been identified, a neck cut was planned according to measurements from preoperative templating. A ruler was cut at the length measured between the superior aspect of the lesser trochanter and the collar of the prosthesis. This line was extended towards the inferior aspect of the lateral cobra retractor to plan a cut which would leave minimal residual femoral neck laterally. The neck was cut at 60 degrees of external rotation along that line. A second cut was performed to remove a large napkin ring and facilitate head extraction. The napkin ring cut and femoral head were removed.?? A broad anterior wall retractor was placed between the labrum and the anterior capsule so that the anterior capsule would prevent capturing and pinching the femoral nerve anteriorly. An additional retractor was placed on the posterior wall. External rotation and traction were applied through the [place] table so that the cut surface of the femoral neck would not restrict access to the acetabulum. The labrum was excised sharply and the pulvinar was excised with electrocautery to limit bleeding from branches of the obturator artery. Acetabular reamers were selected based on preoperative templating and measurements of the excised femoral head. These were introduced into the acetabulum. Fluoroscopy was utilized to replicate a standing AP pelvis radiograph by centering over the pelvis, rotating until there was appropriate symmetry between the obturator foramen, and introducing caudal tilt to match the position of the pubic symphysis relative to the sacrococcygeal junction according to the patient?s anatomy. Fluoroscopy was utilized to ensure appropriate reaming depth. Once satisfied with the reaming depth corresponding to the preoperative template and the pinch fit between the columns, an appropriate sized acetabular cup was selected which would provide 1 mm of press-fit. This cup was introduced and manipulated until appropriate abduction and anteversion angles were obtained with careful attention to appropriate abduction and anteversion angles as evaluated by the position of the cup relative to the anterior and posterior carranza of the acetabulum and the AP fluoroscopy which recreated the patient?s standing radiograph. The cup was impacted into place. Peripheral osteophytes were removed. The acetabular liner was then placed with care to ensure locking of the locking mechanism.? Attention was then turned to the femur. All retractors were removed, traction was released, a retractor was placed in the interval between the hip capsule and the gluteus minimus, and the hip was externally rotated to 90 degrees. Traction was applied through the [place] table to tension the lateral capsule and this was released using electrocautery. Traction was released and a [place] hook was placed posteriorly around the proximal femur at the level of the vastus ridge. The table height was lowered in order to restrict the tension on the anterior structures during hip hyperextension to limit the risk of femoral nerve palsy. With traction off and the hip at 90 degrees of external rotation, the hip was hyperextended and adducted while manually elevating the femur away from the acetabulum with the [place] hook to ensure it would not be caught behind the greater trochanter. An asymmetric retractor was placed over the calcar and a broad double-pronged retractor was placed over the greater trochanter. The tag stitch capturing the lateral leaflet of the capsule was moved to the medial side, leaving the conjoined and piriformis tendons isolated in the face of the greater trochanter. The hip was externally rotated and elevated. A release of the conjoined tendon was not necessary in order to obtain adequate exposure for broaching. The canal was opened with an opening broach and a rasp was used to remove cancellous bone. A rongeur was used to remove the residual lateral bone at the base of the greater trochanter to avoid placing the stem in varus. The femur was then broached to the appropriate sized stem yielding good rotational fit and fill of the canal as well as appropriate version of the stem trial. Neck and head trials were placed, all retractors were removed and the hip was returned to neutral abduction and extension. I then reduced the hip. Initial trialing was performed with a size 4 broach, a high offset neck and a +1.5 head. I initially manually externally rotated the hip and found that it was very hard to reduce and I could not manually dislocate it. I then locked the hip in 45 degrees of external rotation and dropped it to the floor with traction off which demonstrated no instability. An AP pelvis fluoroscopic image matching the preoperative standing radiograph with both lesser trochanters visible and both hips in 40 degrees of external rotation demonstrated appropriate leg lengths and slightly increased offset as compared to the other side. AP and lateral hip fluoroscopic images were obtained to evaluate the broach size which demonstrated good canal fill. The hip was dislocated and I returned to the broaching position. Based on my evaluation during initial trialing I planned to place these definitive implants. The definitive stem was placed and the trunnion was cleaned and dried. I placed a ceramic head onto the trunnion and impacted it into place on the Dorman taper.?? All retractors were removed and the hip was reduced. A dilute mixture of betadine and peroxide was used to bathe the soft tissues during final fluoroscopic assessment. Appropriate component positioning was confirmed on an AP pelvis radiograph with the operative and nonoperative legs in 40 degrees of external rotation, evaluating leg length and offset. Appropriate stem fill was evaluated on AP and lateral hip radiographs. No fractures were identified on these radiographs. There was no hip instability with maximum (140?) external rotation as well as a 45 degree drop test. The hip was copiously irrigated with pulse lavage. The capsule was closed with absorbable interrupted suture. The TFL fascia was closed with barbed suture while carefully protecting the lateral femoral cutaneous nerve from entrapment. A mixture of Ropivacaine, Epinephrine, Clonidine and Toradol was infiltrated throughout the soft tissues. The skin was closed with 2-0 and 3-0 sutures. Surgical glue was applied and a soft dressing was placed.??The sponge, instrument and needle counts were reported as being correct at the end of the case.??No obvious complications occurred. The patient was transferred from the josé table back to a stretcher. The patient emerged from anesthesia without difficulty and was taken to the PACU in a stable condition.? Plan for aftercare: * No postoperative hip precautions * Weightbearing as tolerated * Aspirin 81 twice per day for DVT prophylaxis * Anticipate discharge home potentially today. Patient will need to take a [place] home and discharge timing will depend on logistics of [place] transportation. * Change into normal clothes upon arrival on the hospital floor * Mobilize in the halls as much as is logistically possible. If physical therapy is unavailable for mobilization, then patient should mobilize with nursing staff * Multimodal pain regimen with no IV opioids ordered * Apply ice machine to operative hip. Ensure that sufficient ice is in the chamber for the pad to remain cold * Follow up at [facility] in 2 weeks * Detailed postoperative instructions available at [email or web address]
[2024-12-06] MEDS: ACETAMINOPHEN 325 MG TABLET 650 MG PO (16:03)
--- NOTE | 2024-12-06 16:28 | PT.IIE ---
Current Diagnoses Unilateral primary osteoarthritis, left hip (12/06/24) Surgery Performed Operation Date: 12/06/24 10:45 Actual Procedures p Total Hip Arthroplasty/Anterior Approach(Left) - Cameron Guadalupe MD Surgical History (Last Reviewed 11/24/20 @ 22:46 by FAITH Yo) History of carpal tunnel repair (02/07/09) Hx of cholecystectomy Medical History (Last Updated 06/08/24 @ 18:49 by Shell Pisano MD) Benign positional vertigo Borderline glaucoma Carotid stenosis, left Cerebral infarction due to unspecified occlusion or stenosis of left carotid arteries Diplopia Ear pain Elevated alkaline phosphatase level Fall (~03/06/20) GERD (gastroesophageal reflux disease) Lung nodule seen on imaging study Major depression, recurrent Multiple sclerosis Multiple sclerosis Nuclear sclerosis of both eyes Presbyopia Screening for diabetes mellitus Screening for lipid disorders Sore throat Surgery follow-up Tendonitis of left rotator cuff Trigger thumb of right hand Vitamin D deficiency, unspecified Physical Therapy Inpatient Evaluation/Re-Eval M1 PT/OT-IP Prior Functional Status Start: 12/06/24 15:44 Freq: NEEDED Status: Active Protocol: Document 12/06/24 15:50 MB (Rec: 12/06/24 16:28 MB [id number]) Medical Review Prior Functional Status Medical History Reviewed Yes Diet/Fluid Consistency Regular Communication WNLs Mobility and Gait I Activities of Daily Living and IADL's I Social History Household Members spouse Living Arrangements House Number of Floors (Floors) One Floor Number of Stairs To Enter/Railing? No stairs to enter. Home Environment Standard Height Toilet,Walk in Shower Home Equipment Front Wheel Walker,Grab Bars In Shower Employment Status Retired M2 PT-IP Current Condition Start: 12/06/24 15:44 Freq: NEEDED Status: Active Protocol: Document 12/06/24 15:50 MB (Rec: 12/06/24 16:28 MB [id number]) Physical Therapy Current Condition Current Condition Evaluation Date 12/06/24 Treatment Diagnosis Left anterior HIGINIO M3 PT-IP Subjective Start: 12/06/24 15:44 Freq: NEEDED Status: Active Protocol: Document 12/06/24 15:50 MB (Rec: 12/06/24 16:28 MB [id number]) Subjective Physical Therapy Visit Type Type Initial Evaluation Visit Start Time 15:50 Visit Stop Time 16:19 Number of SR COMMUNITY MANAGER Visits 0 Physical Therapy Visit Comments Patient Comments Pt is agreeable to PT, nearby, her rollator also nearby, dressed. Therapy Pain Assessment Pain When Pain Assessed At Rest Pain Present Pain Present Pain Reported Location left hip Intensity 2 Scale Used Numeric (0 - 10) M4 PT-IP Mobility and Gait Start: 12/06/24 15:44 Freq: NEEDED Status: Active Protocol: Document 12/06/24 15:50 MB (Rec: 12/06/24 16:28 MB [id number]) PT-Bed Mobility Assessment Supine to Sit Supine to Sit Independent Scooting Scooting to Edge of Bed Independent PT-Transfer Assessment Sit to and From Stand Sit to and from Stand Standby Assistance,1 Person Assistance,Use of Upper Extremities Equipment Transfer Assistive Device Gait Belt,Front Wheeled Walker Orthotic/Prosthetic Devices or Brace: No Transfers Transfer Destination Bed,Toilet Transfer Technique Ambulation Transfer Ability Level of Assist Standby Assistance,1 Person Assistance,Use of Upper Extremities Comments Mobility Comments Cues to push up from the bed and to reach back for the commode after stepping back and touching with left leg so she knows where she is sitting Gait Assessment Gait Gait Assistance Required: Standby Assistance Distance (Feet) 40 Able to Maintain Weight Bearing Status Yes During Gait Assistive Devices Assistive Device Gait Belt,Front Wheeled Walker Orthotic/Prosthetic Devices or Brace: No Gait Deviations General Gait Pattern Antalgic,Decreased Stride Length Factors Limiting Gait Function Factors Limiting Gait Function Limited Range of Motion,Pain Comments Gait Comments 40'x2, included retropulsion and pt is doing and excellent job of stepping through for first gait trial post-op. She also performs all hygiene with urination. PT-Balance Assessment Sitting Balance and Reactions Static Sitting Balance Ability Normal Dynamic Sitting Balance Ability Normal Standing Balance and Reactions Static Standing Balance Ability Good Dynamic Standing Balance Ability Good Device Used RW M5 PT-IP Objective Assessments Start: 12/06/24 15:44 Freq: NEEDED Status: Active Protocol: Document 12/06/24 15:50 MB (Rec: 12/06/24 16:28 MB [id number]) Orientation Orientation/Cognition Level of Alertness Alert Safety Awareness Understands Safety Issues Memory Description No Deficits Noted Gross Range of Motion Upper Extremity ROM Assessment Within Functional Limits Lower Extremity ROM Assessment Left Impaired Impairments Left hip limited post-op, good functional mobility today Strength Comments Strength Comments See ROM comments Coordination Assessment Assessment Coordination Comments LE impaired post-op Sensation Assessment Sensation Gross Sensation Left LE Impaired M6 PT-IP Treatment Start: 12/06/24 15:44 Freq: NEEDED Status: Active Protocol: Document 12/06/24 15:50 MB (Rec: 12/06/24 16:28 MB [id number]) Physical Therapy Treatment Exercises Exercises Ankle Pumps,Gluteal Sets,Quad Sets,Heel Slides Other Treatments Other Treatment Performed LAQ ed, ed in use of ice, benefits of exercises [place], ed about orthostatic hypotension and thinking about fluids and keeping and eye on BP, ed to con't to work on step-through gait and get OPPT set-up M7 PT-IP Assessment and Plan Start: 12/06/24 15:44 Freq: NEEDED Status: Active Protocol: Document 12/06/24 15:50 MB (Rec: 12/06/24 16:28 MB [id number]) PT Summary Assessment and Plan Potential Rehabilitation Potential Excellent Status of Condition at Evaluation Evolving Summary Impairments Pain,ROM,Strength,Balance, Coordination,Sensation,Bed Mobility,Transfers,Gait, Activity Tolerance Assessment Summary Pt is a 74 y/o female presenting same day left anterior HIGINIO and she is doing very well. She has no hip precautions and is able to demonstrate some step-through gait and toilet hygiene. Pt is orthostatic with BP in LUE: sitting 147/71 and standing 123/75 with increasing HR with PT and nsg to address with fluids. Supportive nearby for assessment and all questions answered. Frequency of Treatment Frequency Of Treatment Discharge Precautions Other Precautions No hip precautions Weight Bearing Status Weight Bearing Status Weight Bear as Tolerated Recommendations To Nursing Amount of Assist Needed Standby Assistance Discharge Recommendations PT Discharge Recommendations Home with Assistance, Outpatient PT Transportation Needs at Discharge Private Vehicle
--- NOTE | 2024-12-06 17:15 | SUR.PHASEII ---
2007 Dr Guadalupe to see patient at bedside. Notified of 24 drop in SBP. Pt drinking juice and coffee. Bolus IVF 500ml LR. No sytmptoms. Steady on feet with walk to BR and void.
== END 2024-12-06 17:05 | disposition home or self-care (01) ==
LOC: OR 08:57 → AC 08:57
PROVIDERS: PCP Family Medicine; Referring Provider Orthopaedic Surgery Adult Reconstructive Orthopaedic Surgery; Visit Provider Orthopaedic Surgery Adult Reconstructive Orthopaedic Surgery
PROC: (CPT 27130; principal; 2024-12-06 10:45)
DX: M16.12 Unilateral primary osteoarthritis, left hip (principal); M25.752 Osteophyte, left hip
CPT/HCPCS: 27130; 73502; 76000; 97161; 97535; C1776; J0690; J1100; J1885; J2405; J2704; J3010

== ENCOUNTER → 2025-06-23 11:12 | Outpatient (CLI) | payer MEDICARE, SELFPAY ==
[2025-05-12 13:58] VITALS: BMI 29.2
[2025-06-23 19:25] LABS: Hematocrit 43.0 % (36-46); Hemoglobin 14.3 g/dL (12.0-16.0); Mean Corpuscular HGB Conc 33.3 % (30-36); Mean Corpuscular Hemoglobin 29.1 PG (26-34); Mean Corpuscular Volume 87.5 fL (80-100); Platelet Count 279 X10^3/uL (150-400)
[2025-06-23 19:43] LABS: Alanine Aminotransferase 64 IU/L (<35); Albumin 4.2 g/dL (3.5-5.0); Albumin Globulin Ratio 1.5 (1.0-2.8); Alkaline Phosphatase 134 U/L (38-126); Blood Urea Nitrogen 18 mg/dL (7-17); Calcium 9.5 mg/dL (8.4-10.2); Carbon Dioxide 31 mmol/L (22-32); Chloride 103 mmol/L (98-107); Cholesterol 163 mg/dL (140-199); Estimated Glomerular Filt Rate > 60 mL/min (>60); Globulin 2.8 g/dL (1.7-4.1); Glucose 95 mg/dL (70-99); HDL Cholesterol 50 mg/dL (40-60); HEMOLYSIS 24 (0-50); Potassium 4.5 mmol/L (3.4-5.1); Sodium 138 mmol/L (137-145); Total Protein 7.0 g/dL (6.3-8.2); Triglycerides 260 mg/dL (35-150)
[2025-06-23 20:09] LABS: Thyroid Stimulating Hormone 3.70 uIU/mL (0.47-4.68)
== END ==
PROVIDERS: PCP Family Medicine; Visit Provider Family Medicine
DX: I10 Essential (primary) hypertension (principal); R23.2 Flushing; R79.89 Other specified abnormal findings of blood chemistry; R61 Generalized hyperhidrosis; E03.9 Hypothyroidism, unspecified; E78.2 Mixed hyperlipidemia; K75.9 Inflammatory liver disease, unspecified
CPT/HCPCS: 80053; 80061; 84443; 85027